=== PATIENT | female | born 1970 | race Caucasian/White ===

== ENCOUNTER 2016-03-05 12:18 | Outpatient (CLI) | payer OTHER | END 2016-03-05 12:19 | disposition home or self-care (01) | DX: M47.812 Spondylosis without myelopathy or radiculopathy, cervical region (principal); G89.29 Other chronic pain; R45.84 Anhedonia; R68.89 Other general symptoms and signs ==

== ENCOUNTER 2016-03-12 10:15 | Outpatient (CLI) | payer OTHER | END 2016-03-12 10:16 | disposition home or self-care (01) | DX: K52.9 Noninfective gastroenteritis and colitis, unspecified (principal) ==

== ENCOUNTER 2016-04-24 17:32 | Emergency (ER) | payer OTHER | END 2016-04-24 17:58 | disposition home or self-care (01) | DX: H66.001 Acute suppurative otitis media without spontaneous rupture of ear drum, right ear (principal); Z86.718 Personal history of other venous thrombosis and embolism; M79.7 Fibromyalgia; F17.200 Nicotine dependence, unspecified, uncomplicated ==

== ENCOUNTER 2016-07-29 12:11 | Emergency (ER) | payer OTHER ==
--- NOTE | 2016-07-29 12:43 | ED Physician Documentation ---
PD HPI HEENT - Stated complaint Stated Complaint: R EAR PX - Chief complaint Chief Complaint: Heent - History obtained from History obtained from: Patient - History of Present Illness Timing - onset: Other (She has frequent ear infections, cough and cold symptoms for the last week but increased right ear pain with popping and decreased hearing today.) Review of Systems Constitutional: denies: Fever, Chills Ears: reports: Loss of hearing, Ear pain. 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, Other HEENT: Tonsil/Adenoidectomy - Present Medications Home Medications: Ambulatory Orders Medication Instructions Recorded Confirmed Lisinopril 20 mg PO DAILY 09/21/13 03/18/15 Esomeprazole Magnesium [Nexium] 20 mg ORAL DAILY 02/18/15 03/18/15 Ferrous Gluconate 1 tab ORAL DAILY 02/18/15 03/18/15 DULoxetine [Cymbalta] 30 mg PO BID 12/18/15 12/18/15 HYDROcod/ACETAM 5/325 [[place] 5/325] 1 tab PO BID 12/18/15 12/18/15 Cephalexin [Keflex] 500 mg PO TID #21 capsule 04/24/16 Dexamethasone [Decadron] 4 mg PO DAILY #5 tablet 04/24/16 Acetaminophen with Codeine 1 - 2 tab PO Q4H PRN #10 tablet 07/29/16 [Acetaminophen-Cod #3 Tablet] Amoxicillin 500 mg PO TID #30 capsule 07/29/16 - Allergies Allergies/Adverse Reactions: Allergies Allergy/AdvReac Type Severity Reaction Status Date / Time nickel Allergy Edema Verified 07/29/16 12:25 - Social History Does the pt smoke?: Yes Smoking Status: Current every day smoker Does the pt drink ETOH?: No Does the pt have substance abuse?: No - Immunizations Immunizations are current?: Yes Immunizations: TDAP >10years/unknown - POLST Patient has POLST: No PD ED PE NORMAL - Vitals Vital signs reviewed: Yes - General General: Alert and oriented X 3, No acute distress - HEENT HEENT: PERRL, EOMI, Other (ROM, LTM normal) - Neck Neck: Supple, no meningeal sign, No bony TTP - Neuro Neuro: Alert and oriented X 3, Normal speech - Psych Psych: Normal mood, Normal affect Results - Vitals Vitals: Vital Signs - 24 hr 07/29/16 07/29/16 12:24 12:48 Temperature 36.7 C Heart Rate 84 80 Respiratory 14 16 Rate Blood Pressure 128/79 135/83 H O2 Saturation 100 99 Oxygen O2 Source Room air PD MEDICAL DECISION MAKING - ED course ED course: She requested pain medications, 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 A limited prescription was given. Departure - Departure Disposition: 01 Home, Self Care Clinical Impression: Otitis media Qualifiers: Otitis media type: suppurative Laterality: right Chronicity: acute Recurrence: recurrent Spontaneous tympanic membrane rupture: without spontaneous rupture Qualified Code(s): H66.004 - Acute suppurative otitis media without spontaneous rupture of ear drum, recurrent, right ear Condition: Good Record reviewed to determine appropriate education?: Yes Instructions: ED Otitis Media Acute Adult Prescriptions: Acetaminophen with Codeine [Acetaminophen-Cod #3 Tablet] 1 - 2 tab PO Q4H PRN # 10 tablet PRN Reason: Pain Amoxicillin 500 mg PO TID #30 capsule Comments: Followup with your physician in one week for recheck. Return if worse. Do not drink or drive while on narcotic pain medicine. Note that many narcotic pain relievers also contain tylenol/acetaminophen. Please ensure that your total dose of acetaminophen from all sources does not exceed 3 grams (3000mg) per day. You may constipated on this medication, take a stool softener such as "Colace" twice a day while you are on it. Also recommend a wdrx-zno-jwoqlru laxative such as senna or MiraLAX any day that you do not have a bowel movement. If you received narcotic pain medication in the emergency department, do not drive or operate machinery for the next 24 hours.
[2016-07-29 12:49] VITALS: BP 135/83
== END 2016-07-29 12:57 | disposition home or self-care (01) ==
LOC: ED 12:11
DX: H66.004 Acute suppurative otitis media without spontaneous rupture of ear drum, recurrent, right ear (principal); M79.7 Fibromyalgia; Z86.718 Personal history of other venous thrombosis and embolism; F17.200 Nicotine dependence, unspecified, uncomplicated
CPT/HCPCS: 99283

== ENCOUNTER 2016-09-17 15:43 | Emergency (ER) | payer OTHER ==
--- NOTE | 2016-09-17 19:05 | ED Physician Documentation ---
History of Present Illness - Stated complaint Stated Complaint: MIGRAINE/ R EAR HEARING ISSUE - Chief complaint Chief Complaint: Heent - Additonal information Additional information: hx from pt 46 f states hx R TM perf and recurrent infections since then form the last month or two she has had pain behind her ear and vertigo saw PMD told maybe she has mastoiditis, no imaging so far, rx augmentin X 10 d s relief, referral to ENT in progress pt to ER today because the vertigo was so bad she felt she might faint had a KELLY typical of her migraines yesterday but not today otherwise no numbness or weakness Review of Systems Constitutional: denies: Fever, Chills Ears: reports: Ear pain : reports: Control (tubal ligation) PD PAST MEDICAL HISTORY - Past Medical History Cardiovascular: Deep vein thrombosis Neuro: Headache/migraine Psych: Depression Musculoskeletal: Fibromyalgia, Chronic back pain Derm: Psoriasis - Past Surgical History Past Surgical History: Yes General: Other Ortho: Carpal Tunnel surgery, 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, Other HEENT: Tonsil/Adenoidectomy - Present Medications Home Medications: Ambulatory Orders Medication Instructions Recorded Confirmed Lisinopril 20 mg PO DAILY 09/21/13 09/17/16 Esomeprazole Magnesium [Nexium] 20 mg ORAL DAILY 02/18/15 09/17/16 Ferrous Gluconate 1 tab ORAL DAILY 02/18/15 09/17/16 DULoxetine [Cymbalta] 30 mg PO BID 12/18/15 09/17/16 HYDROcod/ACETAM 5/325 [[place] 5/325] 1 tab PO BID 12/18/15 09/17/16 Fluticasone [Flonase] 1 sprays CHITRA BID PRN #1 bottle 09/17/16 Meclizine [Antivert] 25 mg PO Q6H PRN #20 tablet 09/17/16 Zolpidem [Ambien] 5 mg PO HS 09/17/16 09/17/16 - Allergies Allergies/Adverse Reactions: Allergies Allergy/AdvReac Type Severity Reaction Status Date / Time nickel Allergy Edema Verified 09/17/16 15:52 - Social History Does the pt smoke?: Yes Smoking Status: Current every day smoker Does the pt drink ETOH?: No Does the pt have substance abuse?: No - Immunizations Immunizations are current?: Yes Immunizations: TDAP >10years/unknown - POLST Patient has POLST: No PD ED PE NORMAL - Vitals Vital signs reviewed: Yes - HEENT HEENT: Ears normal (TM dull and guzman, no perf or dc seen now), Other (TTP R mastoid but no redness swelling or warmth) - Cardiac Cardiac: RRR - Respiratory Respiratory: No respiratory distress, Clear bilaterally - Abdomen Abdomen: Soft, Non tender Results - Vitals Vitals: Vital Signs - 24 hr 09/17/16 09/17/16 15:50 18:21 Temperature 36.4 C L 36.5 C Heart Rate 99 87 Respiratory 16 18 Rate Blood Pressure 159/90 H 139/94 H O2 Saturation 100 100 Oxygen O2 Source Room air PD MEDICAL DECISION MAKING - ED course ED course: will try meclizine and rec flonase for pt 2/2 ear feels plugged, also printed epleys for pt to try at home Departure - Departure Disposition: 01 Home, Self Care Clinical Impression: Vertigo Condition: Good Instructions: ED Vertigo Unspecified Prescriptions: Meclizine [Antivert] 25 mg PO Q6H PRN #20 tablet PRN Reason: Dizziness Fluticasone [Flonase] 1 sprays CHITRA BID PRN #1 bottle PRN Reason: ear congestion Comments: Try the Earl maneuvers I printed instructions for Follow up with your PMD and ENT And have your PMD recheck your blood pressure - it was high today
[2016-09-17] MEDS: MECLIZINE 12.5 MG TABLET PO STA (19:14)
[2016-09-17] MEDS: OXYMETAZOLINE NASAL SPRAY NAS STA (19:16)
[2016-09-17] MEDS ORDERED: OXYMETAZOLINE NASAL SPRAY NAS ONE (19:17)
[2016-09-17] MEDS ORDERED: MECLIZINE 12.5 MG TABLET PO ONE (19:17)
[2016-09-17 19:56] VITALS: BP 147/91
== END 2016-09-17 19:55 | disposition home or self-care (01) ==
LOC: ED 15:43
DX: R42 Dizziness and giddiness (principal); Z86.718 Personal history of other venous thrombosis and embolism; M79.7 Fibromyalgia; F17.200 Nicotine dependence, unspecified, uncomplicated
CPT/HCPCS: 99283; A9270

== ENCOUNTER 2016-09-28 13:46 | Emergency (ER) | payer OTHER ==
[2016-09-28 14:02] VITALS: BP 152/97
[2016-09-28] MEDS ORDERED: SODIUM CHLORIDE 0.9% 1,000 ML IV ONE (14:45)
[2016-09-28 15:31] LABS: BASOPHILS # (AUTO) 0.1 10^3/uL (0.0-0.1); BASOPHILS % (AUTO) 1.3 %; EOSINOPHILS # (AUTO) 0.2 10^3/uL (0.0-0.7); EOSINOPHILS % (AUTO) 2.3 %; HCT - HEMATOCRIT 39.7 % (37.0-47.0); HGB - HEMOGLOBIN 13.5 g/dL (12.0-16.0); LYMPHOCYTES # (AUTO) 3.1 10^3/uL (1.5-3.5); LYMPHOCYTES % (AUTO) 32.5 %; MEAN CORPUSCULAR HEMOGLOBIN 29.8 pg (27.0-31.0); MEAN CORPUSCULAR HGB CONC 33.9 g/dL (32.0-36.0); MEAN CORPUSCULAR VOLUME 87.8 fL (81.0-99.0); MONOCYTES # (AUTO) 0.6 10^3/uL (0.0-1.0); MONOCYTES % (AUTO) 5.9 %; NEUTROPHILS # (AUTO) 5.6 10^3/uL (1.5-6.6); NUCLEATED RED BLOOD CELLS AUTO 0.1 /100WBC; RED BLOOD COUNT 4.52 10^6/uL (4.20-5.40); RED CELL DISTRIBUTION WIDTH 14.6 % (12.0-15.0); UNCORRECTED WHITE BLOOD COUNT 9.6 x10^3/uL; WHITE BLOOD COUNT 9.6 x10^3/uL (4.8-10.8)
[2016-09-28 15:45] LABS: ALBUMIN/GLOBULIN RATIO 1.3 (1.0-2.2); BILIRUBIN,TOTAL 0.4 mg/dL (0.2-1.0); CALCIUM 9.1 mg/dL (8.5-10.3); CREATININE 0.7 mg/dL (0.4-1.0); POTASSIUM 3.9 mmol/L (3.5-5.0); TOTAL PROTEIN 7.5 g/dL (6.7-8.2)
--- NOTE | 2016-09-28 15:56 | CT Preliminary Report ---
Exam: CT Facial Bones W/O IMPRESSION: 1. Near complete opacification of the right mastoid air cells as well as woby-pa-ybiqvxco fluid withi n the right middle ear. In the correct clinical setting this can be seen in otomastoiditis. 2. Moderate left mastoid fluid which can be seen in mastoiditis in the correct clinical setting. [facility] SITE ID: [id number]
--- NOTE | 2016-09-28 15:59 | CT Report ---
EXAM: CT MAXILLOFACIAL WITHOUT CONTRAST EXAM DATE: 09/28/2016 03:05 PM. CLINICAL HISTORY: Right mastoid tenderness. COMPARISONS: None. TECHNIQUE: Thin-section axial images were acquired of the face without contrast. Post-processing: Cor onal and sagittal reformats. Other: None. In accordance with CT protocol optimization, one or more of the following dose reduction techniques w ere utilized for this exam: automated exposure control, adjustment of mA and/or KV based on patient s ize, or use of iterative reconstructive technique. FINDINGS: Bones: No fracture or bone lesion. Temporomandibular Joints: The temporomandibular joints are symmetric and normally located. Sinuses: Mild mucosal thickening within the paranasal sinuses. Leftward curvature of the nasal septum . Moderate left mastoid fluid without evidence of erosion. Near-complete opacification of the right mastoid air cells without discrete erosion as well as mild t o moderate right middle ear fluid. Other: None. IMPRESSION: 1. Near complete opacification of the right mastoid air cells as well as xtuh-vf-vqbgpmft fluid withi n the right middle ear. In the correct clinical setting this can be seen in otomastoiditis. 2. Moderate left mastoid fluid which can be seen in mastoiditis in the correct clinical setting. [facility] Referring Provider Line: [phone] SITE ID: [id number]
[2016-09-28] MEDS ORDERED: SODIUM CHLORIDE FLUSH 0.9% 10 ML SYRINGE IVP ONE (16:06)
--- NOTE | 2016-09-28 16:48 | ED Physician Documentation ---
History of Present Illness - Stated complaint Stated Complaint: DIZZY/LETHARGIC - Chief complaint Chief Complaint: General - History obtained from History obtained from: Patient, Family - History of Present Illness Timing: Chronic (1 year) Pain level max: 6 Pain level now: 6 Improved by: augmentin Worsened by: moving - Additonal information Additional information: Patient is a 46-year-old female who presents to the emergency department with approximately a year to year and a half worth of intermittent vertigo, right ear pain. Most recently seen here for same and placed on antibiotics. She was then changed to Augmentin by her doctor which seemed to help her symptoms, has now stopped the antibiotics and is concerned about mastoiditis. No fevers. She has had vertigo from time to time as well as right-sided head pain. She has a referral to ENT, but has not made an appointment yet Patient states that meclizine helps her vertigo, but does not want to take this as it just makes her sleep. 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, Other HEENT: Tonsil/Adenoidectomy - Present Medications Home Medications: Ambulatory Orders Medication Instructions Recorded Confirmed Lisinopril 20 mg PO DAILY 09/21/13 09/17/16 Esomeprazole Magnesium [Nexium] 20 mg ORAL DAILY 02/18/15 09/17/16 Ferrous Gluconate 1 tab ORAL DAILY 02/18/15 09/17/16 DULoxetine [Cymbalta] 30 mg PO BID 12/18/15 09/17/16 HYDROcod/ACETAM 5/325 [[place] 5/325] 1 tab PO BID 12/18/15 09/17/16 Fluticasone [Flonase] 1 sprays CHITRA BID PRN #1 bottle 08/08/17 Meclizine [Antivert] 25 mg PO Q6H PRN #20 tablet 09/17/16 Zolpidem [Ambien] 5 mg PO HS 09/17/16 09/17/16 Amox/Clav 875/125 [Augmentin] 1 each PO Q12H #20 tablet 09/28/16 Oxycodone HCl/Acetaminophen 1 - 2 each PO Q6H PRN #7 tablet 09/28/16 [Percocet 5-325 mg Tablet] - Allergies Allergies/Adverse Reactions: Allergies Allergy/AdvReac Type Severity Reaction Status Date / Time nickel Allergy Edema Verified 09/17/16 15:52 - Social History Does the pt smoke?: Yes Smoking Status: Current every day smoker Does the pt drink ETOH?: No Does the pt have substance abuse?: No - Immunizations Immunizations are current?: Yes Immunizations: TDAP >10years/unknown - POLST Patient has POLST: No PD ED PE NORMAL - Vitals Vital signs reviewed: Yes - General General: Alert and oriented X 3, No acute distress - HEENT HEENT: PERRL, Moist mucous membranes, Pharynx benign, Other (Right tympanic membrane is perforated, there is no drainage. She does have some tenderness over the right mastoid area, no swelling, no erythema, no downward deflexion of the pinna.) - Neck Neck: Supple, no meningeal sign - Cardiac Cardiac: RRR - Respiratory Respiratory: No respiratory distress, Clear bilaterally - Abdomen Abdomen: Soft, Non tender - Derm Derm: Warm and dry - Neuro Neuro: Alert and oriented X 3 - Psych Psych: Normal mood, Normal affect Results - Vitals Vitals: Vital Signs - 24 hr 09/28/16 13:59 Temperature 36.8 C Heart Rate 90 Respiratory 14 Rate Blood Pressure 152/97 H O2 Saturation 100 Oxygen O2 Source Room air - Labs Labs: Laboratory Tests 09/28/16 09/28/16 14:45 14:45 WBC 9.6 RBC 4.52 Hgb 13.5 Hct 39.7 MCV 87.8 MCH 29.8 MCHC 33.9 RDW 14.6 Plt Count 265 MPV 8.0 Neut # 5.6 Lymph # 3.1 [place] # 0.6 Eos # 0.2 Baso # 0.1 Absolute Nucleated RBC 0.01 Nucleated RBCs 0.1 Sodium 139 Potassium 3.9 Chloride 106 Carbon Dioxide 23 Anion Gap 10.0 BUN 13 Creatinine 0.7 Estimated GFR (MDRD) 90 Glucose 117 H Calcium 9.1 Total Bilirubin 0.4 AST 15 ALT 15 Alkaline Phosphatase 79 Total Protein 7.5 Albumin 4.2 Globulin 3.3 Albumin/Globulin Ratio 1.3 Lipase 33 - Rads (name of study) CT mastoids Radiology: Prelim report reviewed, EMP read contemporaneously, See rad report ( . Near complete opacification of the right mastoid air cells as well as mild-to- moderate fluid within the right middle ear. In the correct clinical setting this can be seen in otomastoiditis. Moderate left mastoid fluid which can be seen in mastoiditis in the correct clinical setting.) PD MEDICAL DECISION MAKING - ED course Complexity details: reviewed results, re-evaluated patient, considered differential, d/w patient, d/w family ED course: Patient is a 46-year-old female who presents to the emergency department what appears to be a chronic perforation of the right eardrum leading to chronic otitis media. She does have fluid in the bilateral air cells of the mastoids, but does not have clinical symptoms of mastoiditis other than discomfort. She is very well-appearing, nontoxic. Afebrile. Normal white blood cell count. We will place her on Augmentin and have her follow-up closely with ENT. She feels better after IV fluids and is tolerating p.o. without difficulty here. Will prescribe a small amount of pain medication for home as well. Patient will return if she worsens. Patient and family counseled regarding signs and symptoms for which I believe and urgent re-evaluation would be necessary. Patient with good understanding of and agreement to plan and is comfortable going home at this time This document was made in part using voice recognition software. While efforts are made to proofread this document, sound alike and grammatical errors may occur. More likely that the fluid in the mastoid cells represents effusion rather than true mastoiditis at this time. Departure - Departure Disposition: 01 Home, Self Care Clinical Impression: Vertigo Chronic otitis media Qualifiers: Otitis media type: suppurative Laterality: right Suppurative otitis media location: unspecified location Qualified Code(s): H66.3X1 - Other chronic suppurative otitis media, right ear Condition: Good Instructions: ED Vertigo Unspecified, ED Otitis Media Acute Adult Follow-Up: Yonathan Valderrama MD [Primary Care Provider] - Within 1 week [facility] [Provider Group] [facility] [Provider Group] Prescriptions: Amox/Clav 875/125 [Augmentin] 1 each PO Q12H #20 tablet Oxycodone HCl/Acetaminophen [Percocet 5-325 mg Tablet] 1 - 2 each PO Q6H PRN #7 tablet PRN Reason: pain Comments: It is very important that you call ENT and follow up closely with with them for further evaluation. Return if you worsen. Discharge Date/Time: 09/28/16 17:30
== END 2016-09-28 17:30 | disposition home or self-care (01) ==
LOC: ED 13:46
DX: R42 Dizziness and giddiness (principal); H66.3X1 Other chronic suppurative otitis media, right ear; M79.7 Fibromyalgia; Z86.718 Personal history of other venous thrombosis and embolism; F17.200 Nicotine dependence, unspecified, uncomplicated
CPT/HCPCS: 36415; 70486; 80053; 83690; 85025; 96360; 99283; 99284

== ENCOUNTER 2016-10-19 18:54 | Emergency (ER) | payer OTHER ==
--- NOTE | 2016-10-19 19:16 | ED Physician Documentation ---
PD HPI MHE - Stated complaint Stated Complaint: SI - Chief complaint Chief Complaint: MHE - History obtained from History obtained from: Patient, Police - History of Present Illness Primary symptom: Other (46-year-old woman presents by private vehicle for suicidal ideation of several days duration. She initially denies any specific plan to me, however it is related from [facility] deputy that she has been asking her for her gun. She does have a history of suicide attempt at age 15 but has never been hospitalized for psychiatric issues. She denies drug or alcohol use but has missed a few Doses of her Cymbalta because of a pharmacy mixup.) Review of Systems Ten Systems: 10 systems reviewed and negative Constitutional: denies: Fever, Chills Nose: denies: Rhinorrhea / runny nose, Congestion Cardiac: reports: Reviewed and negative Respiratory: reports: Reviewed and negative GI: reports: Reviewed and negative PD PAST MEDICAL HISTORY - Past Medical History Cardiovascular: Deep vein thrombosis Neuro: Headache/migraine Psych: Depression Musculoskeletal: Fibromyalgia, Chronic back pain Derm: Psoriasis - Past Surgical History Past Surgical History: Yes General: Other Ortho: Carpal Tunnel surgery, 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, Other HEENT: Tonsil/Adenoidectomy - Present Medications Home Medications: Ambulatory Orders Medication Instructions Recorded Confirmed Lisinopril 20 mg PO DAILY 09/21/13 09/17/16 Esomeprazole Magnesium [Nexium] 20 mg ORAL DAILY 02/18/15 09/17/16 Ferrous Gluconate 1 tab ORAL DAILY 02/18/15 09/17/16 DULoxetine [Cymbalta] 30 mg PO BID 12/18/15 09/17/16 HYDROcod/ACETAM 5/325 [[place] 5/325] 1 tab PO BID 12/18/15 09/17/16 Fluticasone [Flonase] 1 sprays CHITRA BID PRN #1 bottle 09/17/16 Meclizine [Antivert] 25 mg PO Q6H PRN #20 tablet 09/17/16 Zolpidem [Ambien] 5 mg PO HS 09/17/16 09/17/16 Amox/Clav 875/125 [Augmentin] 1 each PO Q12H #20 tablet 09/28/16 Oxycodone HCl/Acetaminophen 1 - 2 each PO Q6H PRN #7 tablet 09/28/16 [Percocet 5-325 mg Tablet] - Allergies Allergies/Adverse Reactions: Allergies Allergy/AdvReac Type Severity Reaction Status Date / Time nickel Allergy Edema Verified 10/19/16 19:10 - Social History Does the pt smoke?: Yes Smoking Status: Current every day smoker Does the pt drink ETOH?: No Does the pt have substance abuse?: No - Family History Family history: reports: Non contributory - Immunizations Immunizations are current?: Yes Immunizations: TDAP >10years/unknown - POLST Patient has POLST: No PD ED PE NORMAL - Vitals Vital signs reviewed: Yes - General General: Alert and oriented X 3, No acute distress - HEENT HEENT: PERRL, EOMI - Neck Neck: Supple, no meningeal sign, No bony TTP - Cardiac Cardiac: RRR, No murmur - Respiratory Respiratory: No respiratory distress, Clear bilaterally - Abdomen Abdomen: Normal bowel sounds, Soft, Non tender - Back Back: No CVA TTP, No spinal TTP - Derm Derm: Normal color, Warm and dry - Extremities Extremities: No edema, No calf tenderness / cord - Neuro Neuro: Alert and oriented X 3, No motor deficit, No sensory deficit, Normal speech - Psych Psych: Normal mood, Normal affect Results - Vitals Vitals: Vital Signs - 24 hr 10/19/16 10/20/16 19:04 01:08 Temperature 36.5 C Heart Rate 98 68 Respiratory 14 16 Rate Blood Pressure 172/105 H 133/77 H O2 Saturation 98 96 Oxygen O2 Source Room air - Labs Labs: Laboratory Tests 10/19/16 10/19/16 10/19/16 19:24 19:24 20:05 WBC 10.2 RBC 4.64 Hgb 13.7 Hct 40.4 MCV 87.1 MCH 29.4 MCHC 33.8 RDW 14.6 Plt Count 286 MPV 7.7 L Neut # 5.9 Lymph # 3.0 [place] # 1.0 Eos # 0.2 Baso # 0.1 Absolute Nucleated RBC 0.00 Nucleated RBCs 0.0 Sodium 138 Potassium 3.9 Chloride 108 Carbon Dioxide 21 Anion Gap 9.0 BUN 14 Creatinine 0.6 Estimated GFR (MDRD) 108 Glucose 89 Calcium 9.4 Total Bilirubin 0.3 AST 22 ALT 18 Alkaline Phosphatase 72 Total Protein 7.8 Albumin 4.3 Globulin 3.5 Albumin/Globulin Ratio 1.2 Lipase 22 Urine Color Urine Clarity Urine pH Ur Specific [place] Urine Protein Urine Glucose (UA) Urine Ketones Urine Occult Blood Urine Nitrite Urine Bilirubin Urine Urobilinogen Ur Leukocyte Esterase Ur Microscopic Review Urine Culture Comments Urine HCG, Qual Urine Opiates Screen NEGATIVE Ur Oxycodone Screen NEGATIVE Urine Methadone Screen NEGATIVE Ur Propoxyphene Screen NEGATIVE Ur Barbiturates Screen NEGATIVE Ur Tricyclics Screen NEGATIVE Ur Phencyclidine Scrn NEGATIVE Ur Amphetamine Screen NEGATIVE U Methamphetamines Scrn NEGATIVE U Benzodiazepines Scrn POSITIVE H Urine Cocaine Screen NEGATIVE U Cannabinoids Screen NEGATIVE Ethyl Alcohol 5.7 10/19/16 20:05 WBC RBC Hgb Hct MCV MCH MCHC RDW Plt Count MPV Neut # Lymph # Angelina # Eos # Baso # Absolute Nucleated RBC Nucleated RBCs Sodium Potassium Chloride Carbon Dioxide Anion Gap BUN Creatinine Estimated GFR (MDRD) Glucose Calcium Total Bilirubin AST ALT Alkaline Phosphatase Total Protein Albumin Globulin Albumin/Globulin Ratio Lipase Urine Color YELLOW Urine Clarity CLEAR Urine pH 6.0 Ur Specific [place] >=1.030 H Urine Protein NEGATIVE Urine Glucose (UA) NEGATIVE Urine Ketones NEGATIVE Urine Occult Blood NEGATIVE Urine Nitrite NEGATIVE Urine Bilirubin NEGATIVE Urine Urobilinogen 0.2 (NORMAL) Ur Leukocyte Esterase NEGATIVE Ur Microscopic Review NOT INDICATED Urine Culture Comments NOT INDICATED Urine HCG, Qual NEGATIVE Urine Opiates Screen Ur Oxycodone Screen Urine Methadone Screen Ur Propoxyphene Screen Ur Barbiturates Screen Ur Tricyclics Screen Ur Phencyclidine Scrn Ur Amphetamine Screen U Methamphetamines Scrn U Benzodiazepines Scrn Urine Cocaine Screen U Cannabinoids Screen Ethyl Alcohol PD MEDICAL DECISION MAKING - ED course ED course: 46yo woman with Si and plan with access to gun. Seems at least moderate risk for suicide. RN called P who was dispatched to see patient. Care to Dr Montes to followup on P eval at shift change. Departure - Departure Disposition: 01 Home, Self Care Clinical Impression: Suicidal ideation Depression Qualifiers: Depression Type: major depressive disorder Major depression recurrence: recurrent Active/Remission status: currently active Major depression episode severity: severe Psychotic features: without psychotic features Qualified Code(s ): F33.2 - Major depressive disorder, recurrent severe without psychotic features Condition: Good Instructions: ED Depression Follow-Up: Yonathan Valderrama MD [Primary Care Provider] - Comments: Your blood pressure was elevated today, please recheck with your MD in 1 week or less. Discharge Date/Time: 10/20/16 01:13
[2016-10-19 19:28] LABS: BASOPHILS # (AUTO) 0.1 10^3/uL (0.0-0.1); BASOPHILS % (AUTO) 1.2 %; EOSINOPHILS # (AUTO) 0.2 10^3/uL (0.0-0.7); EOSINOPHILS % (AUTO) 1.6 %; HCT - HEMATOCRIT 40.4 % (37.0-47.0); HGB - HEMOGLOBIN 13.7 g/dL (12.0-16.0); LYMPHOCYTES % (AUTO) 29.9 %; MEAN CORPUSCULAR HEMOGLOBIN 29.4 pg (27.0-31.0); MEAN CORPUSCULAR HGB CONC 33.8 g/dL (32.0-36.0); MEAN CORPUSCULAR VOLUME 87.1 fL (81.0-99.0); MEAN PLATELET VOLUME 7.7 fL (7.9-10.8); MONOCYTES % (AUTO) 9.7 %; NEUTROPHILS # (AUTO) 5.9 10^3/uL (1.5-6.6); NEUTROPHILS % (AUTO) 57.6 %; RED BLOOD COUNT 4.64 10^6/uL (4.20-5.40); RED CELL DISTRIBUTION WIDTH 14.6 % (12.0-15.0); UNCORRECTED WHITE BLOOD COUNT 10.2 x10^3/uL; WHITE BLOOD COUNT 10.2 x10^3/uL (4.8-10.8)
[2016-10-19 19:41] LABS: ALBUMIN/GLOBULIN RATIO 1.2 (1.0-2.2); BILIRUBIN,TOTAL 0.3 mg/dL (0.2-1.0); CALCIUM 9.4 mg/dL (8.5-10.3); CREATININE 0.6 mg/dL (0.4-1.0); POTASSIUM 3.9 mmol/L (3.5-5.0); TOTAL PROTEIN 7.8 g/dL (6.7-8.2)
[2016-10-19 20:15] LABS: BILIRUBIN,URINE NEGATIVE (NEGATIVE)
[2016-10-19 20:18] LABS: HCG UR QUAL NEGATIVE; UA CHARGE (STRIP ONLY) YES; UR CULTURE IF IND NOT INDICATED
[2016-10-20 01:08] VITALS: BP 133/77
== END 2016-10-20 01:13 | disposition home or self-care (01) ==
LOC: ED 18:54
DX: F33.2 Major depressive disorder, recurrent severe without psychotic features (principal); R45.851 Suicidal ideations; Z91.5 Personal history of self-harm; M79.7 Fibromyalgia; Z86.718 Personal history of other venous thrombosis and embolism; F17.200 Nicotine dependence, unspecified, uncomplicated
CPT/HCPCS: 36415; 80053; 80306; 80320; 81001; 81003; 81025; 83690; 85025; 87086; 99283; 99284

== ENCOUNTER 2017-08-07 09:28 | Emergency (ER) | payer OTHER ==
[2017-08-07 10:11] VITALS: BP 124/74
== END 2017-08-07 11:55 | disposition left against medical advice (07) ==
LOC: ED 09:28
DX: Z53.21 Procedure and treatment not carried out due to patient leaving prior to being seen by health care provider (principal)
CPT/HCPCS: 99281

== ENCOUNTER 2017-08-10 16:09 | Emergency (ER) | payer OTHER ==
[2017-08-10 16:29] VITALS: BP 117/67
[2017-08-10] MEDS ORDERED: OXYMETAZOLINE NASAL SPRAY NAS STA (16:37)
[2017-08-10] MEDS ORDERED: PSEUDOEPHEDRINE 30 MG TABLET PO STA (16:37)
[2017-08-10] MEDS ORDERED: MECLIZINE 12.5 MG TABLET PO STA (16:37)
--- NOTE | 2017-08-10 16:43 | ED Physician Documentation ---
History of Present Illness - Stated complaint Stated Complaint: RT EAR PX - Chief complaint Chief Complaint: Neuro - Additonal information Additional information: hx from pt 47 female saw PMD 48 hr ago for R ear pain dx suzan AOM rx augmentin still has ear pain, dec hearing vertigo no fever denies preg Review of Systems Constitutional: denies: Fever Ears: reports: Ear pain Nose: reports: Congestion GI: denies: Vomiting : denies: Now EGA Neurologic: reports: Generalized weakness, Other (dizzy) Endocrine: denies: Easy bruising / bleeding Immunocompromised: denies: Immunocompromised PD PAST MEDICAL HISTORY - Past Medical History Cardiovascular: Hypertension Psych: Depression Musculoskeletal: Fibromyalgia, Chronic back pain Derm: Psoriasis - Past Surgical History Past Surgical History: Yes General: Other Ortho: Carpal Tunnel surgery, Spine surgery /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: Tubal 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, Other HEENT: Tonsil/Adenoidectomy - Present Medications Home Medications: Ambulatory Orders Medication Instructions Recorded Confirmed Lisinopril 20 mg PO DAILY 09/21/13 08/07/17 Esomeprazole Magnesium [Nexium] 20 mg ORAL DAILY 02/18/15 08/07/17 DULoxetine [Cymbalta] 30 mg PO BID 12/18/15 08/07/17 HYDROcod/ACETAM 5/325 [[place] 5/325] 1 tab PO BID 12/18/15 08/07/17 Fluticasone [Flonase] 1 sprays CHITRA BID PRN #1 bottle 09/17/16 08/07/17 Meclizine [Antivert] 25 mg PO Q6H PRN #20 tablet 09/17/16 08/07/17 Zolpidem [Ambien] 5 mg PO HS 09/17/16 08/07/17 Carbamide Peroxide Otic Drop 5 drops OT BID #1 bottle 08/10/17 [Debrox Otic Drops] Meclizine [Antivert] 25 mg PO Q6H PRN #20 tablet 08/10/17 Oxymetazoline HCl [Afrin] 2 spray NS BID PRN #1 bottle 08/10/17 Pseudoephedrine [Sudafed] 30 mg PO Q6H PRN #20 tablet 08/10/17 - Allergies Allergies/Adverse Reactions: Allergies Allergy/AdvReac Type Severity Reaction Status Date / Time nickel Allergy Edema Verified 08/07/17 10:11 - Social History Does the pt smoke?: Yes Smoking Status: Current every day smoker Does the pt drink ETOH?: No Does the pt have substance abuse?: No - Immunizations Immunizations are current?: Yes Immunizations: TDAP >10years/unknown - POLST Patient has POLST: No PD ED PE NORMAL - Vitals Vital signs reviewed: Yes - HEENT HEENT: EOMI (nystagmus looking right), Pharynx benign. No: Ears normal (suzan cerumen), Moist mucous membranes (sticky - advised to drink more fluids) - Neck Neck: Supple, no meningeal sign - Cardiac Cardiac: RRR - Respiratory Respiratory: No respiratory distress, Clear bilaterally - Abdomen Abdomen: Soft, Non tender - Neuro Neuro: Alert and oriented X 3 Eye Opening: Spontaneous Motor: Obeys Commands Verbal: Oriented GCS Score: 15 Results - Vitals Vitals: Vital Signs - 24 hr 08/10/17 16:23 Temperature 36.3 C L Heart Rate 108 H Respiratory 16 Rate Blood Pressure 117/67 O2 Saturation 100 Oxygen O2 Source Room air PD MEDICAL DECISION MAKING - ED course ED course: HR noted pt has not had much PO fluids today and appears slightly dehydrated able to tolerate pO and promises to drink more fluids at home no fever - don't think pt is septic, feel safe to dc home - Sepsis Event Vital Signs: Vital Signs - 24 hr 08/10/17 16:23 Temperature 36.3 C L Heart Rate 108 H Respiratory 16 Rate Blood Pressure 117/67 O2 Saturation 100 Oxygen O2 Source Room air Departure - Departure Disposition: 01 Home, Self Care Clinical Impression: Vertigo Otitis media Qualifiers: Otitis media type: unspecified Chronicity: subacute Qualified Code(s): H66.90 - Otitis media, unspecified, unspecified ear Cerumen impaction Qualifiers: Laterality: bilateral Qualified Code(s): H61.23 - Impacted cerumen, bilateral Instructions: ED BPV Vertigo Follow-Up: Yonathan Valderrama MD [Primary Care Provider] - Prescriptions: Carbamide Peroxide Otic Drop [Debrox Otic Drops] 5 drops OT BID #1 bottle Meclizine [Antivert] 25 mg PO Q6H PRN #20 tablet PRN Reason: Dizziness Oxymetazoline HCl [Afrin] 2 spray NS BID PRN #1 bottle PRN Reason: nasal sinus ear congestion Pseudoephedrine [Sudafed] 30 mg PO Q6H PRN #20 tablet PRN Reason: congestion Comments: Continue the antibiotic Dr Valderrama prescribed But you also need to us afrin twice a day and take sudafed four times a day to open the Eustachian tubes and decompress the middle ear That will help the pain and also likely help the dizziness I also prescribed meclizine for the dizziness and debrox to dissolve the excessive wax in your ears so you can hear better And drink more fluids No driving while you are dizzy If you are very dizzy, recommend using a friends or relatives cane or walker for a few days until you feel steady on your feet Follow up Dr Valderrama as needed Return to the ER if worse I
== END 2017-08-10 17:03 | disposition home or self-care (01) ==
LOC: ED 16:09
DX: R42 Dizziness and giddiness (principal); H66.90 Otitis media, unspecified, unspecified ear; H61.23 Impacted cerumen, bilateral; I10 Essential (primary) hypertension; F17.200 Nicotine dependence, unspecified, uncomplicated
CPT/HCPCS: 99283; A9270

== ENCOUNTER 2018-09-28 08:00 | Outpatient (CLI) | payer OTHER ==
[2018-09-28 20:44] LABS: CANDIDA GROUP DNA POSITIVE (NEGATIVE); CANDIDA KRUSEI DNA NEGATIVE (NEGATIVE); TRICHOMONAS VAGINALIS DNA NEGATIVE (NEGATIVE)
[2018-09-28 22:05] LABS: TRICHOMONAS VAGINALIS DNA NEGATIVE (NEGATIVE)
== END 2018-09-28 08:01 | disposition home or self-care (01) ==
LOC: LAB.WCP 08:00
PROVIDERS: ATTEND Family Medicine
DX: R30.0 Dysuria (principal); Z11.3 Encounter for screening for infections with a predominantly sexual mode of transmission
CPT/HCPCS: 87086; 87491; 87591; 87661; 87801

== ENCOUNTER 2018-09-28 13:19 | Emergency (ER) | payer OTHER ==
--- NOTE | 2018-09-28 14:11 | ED Physician Documentation ---
PD HPI ABD PAIN - Stated complaint Stated Complaint: ABD PX - Chief complaint Chief Complaint: Abd Pain - History obtained from History obtained from: Patient - History of Present Illness Timing - onset: How many days ago (3) Timing - duration: Days Timing - details: Gradual onset, Still present Quality: Sharp, Pain Location: RLQ Radiation: Lower back Improved by: Laying still Worsened by: Eating, Moving, Breathing, Position, Palpation Associated symptoms: Nausea, Diarrhea, Dysuria, Loss of appetite. No: Vomiting Similar symptoms before: Has not had sx before Recently seen: Clinic - Additional information Additional information: 48 y/o female with a history of fibromyalgia has developed abdominal pain, urinary symptoms and these have progressed over the past 3 days. She has been seen by her primary and a pelvic exam and cultures have been done. She is referred here for CT ab/pel to rule out appendicitis. She has not had fever or vomiting but she has a decreased appetite. Review of Systems Constitutional: denies: Fever Eyes: denies: Decreased vision Ears: denies: Ear pain Nose: denies: Congestion Throat: denies: Sore throat Cardiac: denies: Chest pain / pressure Respiratory: denies: Dyspnea, Cough GI: reports: Abdominal Pain, Nausea, Diarrhea. 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 AND CONTROL ANALYST: None : None HEENT: None Psych: Depression, Bipolar disorder Musculoskeletal: Fibromyalgia, Chronic back pain Derm: Psoriasis - Past Surgical History Past Surgical History: Yes General: Other Ortho: Carpal Tunnel surgery, Spine surgery /COMPLIANCE AND CONTROL ANALYST: Tubal ligation, Other HEENT: Tonsil/Adenoidectomy - Present Medications Home Medications: Ambulatory Orders Medication Instructions Recorded Confirmed RX: Lisinopril 20 mg PO DAILY 09/21/13 08/07/17 Esomeprazole Magnesium [Nexium] 20 mg ORAL DAILY 02/18/15 08/07/17 DULoxetine [Cymbalta] 30 mg PO BID 12/18/15 08/07/17 RX: HYDROcod/ACETAM 5/325 [[place] 1 tab PO BID 12/18/15 08/07/17 5/325] Fluticasone [Flonase] 1 sprays CHITRA BID PRN #1 bottle 09/17/16 08/07/17 RX: Meclizine [Antivert] 25 mg PO Q6H PRN #20 tablet 09/17/16 08/07/17 Zolpidem [Ambien] 5 mg PO HS 09/17/16 08/07/17 Carbamide Peroxide Otic Drop 5 drops OT BID #1 bottle 08/10/17 [Debrox Otic Drops] Oxymetazoline HCl [Afrin] 2 spray NS BID PRN #1 bottle 08/10/17 Pseudoephedrine [Sudafed] 30 mg PO Q6H PRN #20 tablet 08/10/17 RX: Meclizine [Antivert] 25 mg PO Q6H PRN #20 tablet 08/10/17 Oxycodone HCl/Acetaminophen 1 - 2 each PO Q6H PRN #14 tablet 09/28/18 [Percocet 5-325 mg Tablet] - Allergies Allergies/Adverse Reactions: Allergies Allergy/AdvReac Type Severity Reaction Status Date / Time nickel Allergy Edema Verified 09/28/18 13:26 - Social History Does the pt smoke?: Yes Smoking Status: Current every day smoker Does the pt drink ETOH?: No Does the pt have substance abuse?: No - Immunizations Immunizations are current?: Yes Immunizations: TDAP >10years/unknown - POLST Patient has POLST: No PD ED PE NORMAL - Vitals Vital signs reviewed: Yes (tachy and hypertensive ) - General General: Alert and oriented X 3, Well developed/nourished, Other (appears to be in pain with tears in her eyes ) - HEENT HEENT: Atraumatic, PERRL, EOMI - Neck Neck: Supple, no meningeal sign, No bony TTP - Cardiac Cardiac: No murmur, Other (tachy to 110) - Respiratory Respiratory: No respiratory distress, Clear bilaterally - Abdomen Abdomen: Normal bowel sounds, Soft, Other (There is generalized tenderness to all quadrants that appears out of proportion to the exam being done. She has maximal tenderness to the right lower quadrant. ) - Back Back: No spinal TTP, Other (mild CVA tenderness) - Derm Derm: Normal color, Warm and dry, No rash - Extremities Extremities: No deformity, No edema - Neuro Neuro: Alert and oriented X 3, supervisory aide 2-12 intact, No motor deficit, No sensory deficit, Normal speech Eye Opening: Spontaneous Motor: Obeys Commands Verbal: Oriented GCS Score: 15 - Psych Psych: Normal affect, Other (mood is painful ) Results - Vitals Vitals: Vital Signs - 24 hr 09/28/18 09/28/18 09/28/18 13:23 15:40 17:25 Temperature 36.8 C 36.7 C Heart Rate 114 H 90 65 Respiratory 19 16 18 Rate Blood Pressure 141/94 H 137/82 H 133/76 H O2 Saturation 100 98 98 Oxygen O2 Source Room air - Labs Labs: Laboratory Tests 09/28/18 09/28/18 09/28/18 13:48 13:48 14:12 WBC 12.0 H RBC 3.98 L Hgb 12.0 Hct 35.9 L MCV 90.2 MCH 30.2 MCHC 33.4 RDW 15.0 Plt Count 336 MPV 10.0 Neut # (Auto) 8.5 H Lymph # (Auto) 2.5 Gray # (Auto) 0.8 Eos # (Auto) 0.1 Baso # (Auto) 0.1 Absolute Nucleated RBC 0.00 Nucleated RBC % 0.0 Sodium 140 Potassium 3.2 L Chloride 108 Carbon Dioxide 17 L Anion Gap 15.0 H BUN 12 Creatinine 0.8 Estimated GFR (MDRD) 77 L Glucose 107 H Calcium 9.5 Total Bilirubin 0.5 AST 11 ALT 10 Alkaline Phosphatase 63 Total Protein 7.4 Albumin 4.0 Globulin 3.4 Albumin/Globulin Ratio 1.2 Lipase 45 Urine Color YELLOW Urine Clarity CLEAR Urine pH 6.0 Ur Specific [place] <=1.005 Urine Protein NEGATIVE Urine Glucose (UA) NEGATIVE Urine Ketones NEGATIVE Urine Occult Blood NEGATIVE Urine Nitrite NEGATIVE Urine Bilirubin NEGATIVE Urine Urobilinogen 0.2 (NORMAL) Ur Leukocyte Esterase NEGATIVE Ur Microscopic Review NOT INDICATED Urine Culture Comments NOT INDICATED Urine HCG, Qual NEGATIVE - Rads (name of study) CT ab/pel w/o Radiology: Prelim report reviewed, EMP read indepedently, See rad report u/s pel Radiology: Prelim report reviewed (Impression: 1. No adnexal mass. No free fluid. Arterial and venous blood flow are present to the ovaries bilaterally.), EMP read indepedently, See rad report Procedures - Bedside sono Bedside sono by EMP: With use of bedside ultrasound there is no evidence of intraperitoneal fluid. PD MEDICAL DECISION MAKING - ED course Complexity details: reviewed results, re-evaluated patient, considered differential, d/w patient ED course: 48-year-old female with acute abdominal pain presents to the emergency department with what appears to be peritonitis and examination by CT scan and ultrasound are without evidence of abnormality. Patient has good relief of pain with use of intravenous morphine. She has been examined earlier in the day by Dr. Butts and a pelvic exam was done she had cultures done she was not treated. Here in the emergency department she is treated with 250 mg of Rocephin intravenously and 1 g of azithromycin. We will provide a short course of pain medication and expect pain to resolve. Departure - Departure Disposition: Home, Self Care Clinical Impression: Abdominal pain Qualifiers: Abdominal location: generalized Qualified Code(s): R10.84 - Generalized abdominal pain Condition: Stable Instructions: ED Abdominal Pain Unkn Cause Follow-Up: Yonathan Valderrama MD [Primary Care Provider] - Prescriptions: Oxycodone HCl/Acetaminophen [Percocet 5-325 mg Tablet] 1 - 2 each PO Q6H PRN #14 tablet PRN Reason: pain Discharge Date/Time: 09/28/18 18:22
[2018-09-28 14:22] LABS: BASOPHILS # (AUTO) 0.1 10^3/uL (0.0-0.1); BASOPHILS % (AUTO) 0.6 %; EOSINOPHILS # (AUTO) 0.1 10^3/uL (0.0-0.7); EOSINOPHILS % (AUTO) 0.5 %; LYMPHOCYTES # (AUTO) 2.5 10^3/uL (1.5-3.5); LYMPHOCYTES % (AUTO) 20.9 %; MEAN CORPUSCULAR HEMOGLOBIN 30.2 pg (27.0-31.0); MEAN CORPUSCULAR HGB CONC 33.4 g/dL (32.0-36.0); MEAN CORPUSCULAR VOLUME 90.2 fL (81.0-99.0); MONOCYTES # (AUTO) 0.8 10^3/uL (0.0-1.0); MONOCYTES % (AUTO) 6.3 %; NEUTROPHILS # (AUTO) 8.5 10^3/uL (1.5-6.6); NEUTROPHILS % (AUTO) 71.1 %; PLT - PLATELET COUNT 336 10^3/uL (130-450); RED BLOOD COUNT 3.98 10^6/uL (4.20-5.40)
[2018-09-28 14:27] LABS: ALBUMIN/GLOBULIN RATIO 1.2 (1.0-2.2); BILIRUBIN,TOTAL 0.5 mg/dL (0.2-1.0); CALCIUM 9.5 mg/dL (8.5-10.3); CREATININE 0.8 mg/dL (0.4-1.0); TOTAL PROTEIN 7.4 g/dL (6.7-8.2)
[2018-09-28 14:29] LABS: BILIRUBIN,URINE NEGATIVE (NEGATIVE); GLUCOSE, URINE (UA) NEGATIVE (NEGATIVE); KETONES,URINE (UA) NEGATIVE (NEGATIVE); LEUKOCYTE ESTERASE, URINE NEGATIVE (NEGATIVE); NITRITE,URINE NEGATIVE (NEGATIVE); OCCULT BLOOD,URINE NEGATIVE (NEGATIVE); PROTEIN,URINE NEGATIVE (NEGATIVE); UROBILINOGEN,URINE 0.2 (NORMAL) E.U./dL (NORMAL)
[2018-09-28 14:32] LABS: CLARITY,URINE CLEAR (CLEAR); HCG UR QUAL NEGATIVE
[2018-09-28] MEDS ORDERED: POTASSIUM CHLOR 10 MEQ/100 ML 10 MEQ/100 ML BAG IV ONE (14:56)
--- NOTE | 2018-09-28 15:14 | CT Report ---
Reason: RLQ pain Procedure Date: 09/28/2018 Accession Number: [id number] / [id number] Procedure: CT - Abdomen/Pelvis WO CPT Code: FULL RESULT: EXAM: CT ABDOMEN AND PELVIS (CT KUB) EXAM DATE: 09/28/2018 02:57 PM. CLINICAL HISTORY: RLQ pain. COMPARISONS: None. TECHNIQUE: Routine axial helical CT imaging was performed through the abdomen and pelvis without IV contrast. Reconstructions: Coronal and sagittal. In accordance with CT protocol optimization, one or more of the following dose reduction techniques were utilized for this exam: automated exposure control, adjustment of mA and/or KV based on patient size, or use of iterative reconstructive technique. FINDINGS: Evaluation of solid abdominal organs is limited without intravenous contrast. Lung Bases: Unremarkable. Right Kidney/Ureter: No stone, hydronephrosis, or hydroureter. No perinephric fat stranding. Left Kidney/Ureter: No stone, hydronephrosis, or hydroureter. No perinephric fat stranding. Other Solid Organs: There is a 2.6 cm right adrenal nodule with internal density of 7-9 HU, most in keeping with an adenoma. Noncontrast images of the solid organs are grossly unremarkable. Gallbladder/Bile Ducts: Unremarkable. Peritoneal Cavity: No free fluid, free air or tamar adenopathy. Bowel is grossly unremarkable. No evidence of acute appendicitis. Pelvic Organs: No bladder stone or wall thickening. The uterus and adnexa are unremarkable. Vasculature: There is mild to moderate aortic atherosclerosis without aneurysm. Other: There is moderate lower lumbar facet arthrosis. IMPRESSION: 1. Negative CT KUB. 2. A small right adrenal nodule has imaging characteristics most consistent with an adenoma. RADIA
[2018-09-28] MEDS ORDERED: ONDANSETRON 4 MG/2 ML VIAL IVP STA (15:20)
[2018-09-28] MEDS ORDERED: MORPHINE 10 MG/ML VIAL IVP STA (15:20)
--- NOTE | 2018-09-28 17:04 | Ultrasound Report ---
Reason: RLQ pain Procedure Date: 09/28/2018 Accession Number: [id number] / [id number] Procedure: US - Pelvic w/Transvag+Doppler Ltd CPT Code: FULL RESULT: EXAM: PELVIC ULTRASOUND WITH DOPPLERS CLINICAL HISTORY: RLQ pain. COMPARISON: None. TECHNIQUE: Realtime transabdominal imaging performed to identify the uterus and adnexa and as an overview of other pelvic structures, followed by transvaginal imaging for better assessment of the endometrium and adnexa, with static image documentation. Color flow imaging and Doppler spectral analysis was performed to evaluate blood flow to the ovaries given pelvic pain and clinical concern for ovarian torsion. FINDINGS: Uterus: 8.9 x 5.4 x 7.2 cm, volume 180 cc. Anteverted position. Normal overall size and echotexture. Masses: None. Endometrium: 13 mm. Normal. Cervix: Unremarkable. Right Ovary: Multiple follicles seen in right ovary, largest follicle measures 2.2 x 1.8 cm. Arterial and venous blood flow is normal. Left Ovary: Multiple follicles in left ovary, largest follicle is 2.1 x 2.1 x 1.4 cm. Arterial and venous blood flow is normal. Free Fluid: None. Other: None. IMPRESSION: 1. No adnexal mass. No free fluid. 2. Arterial and venous blood flow are present to the ovaries bilaterally. RADIA
[2018-09-28 17:26] VITALS: BP 133/76
[2018-09-28] MEDS ORDERED: cefTRIAXone 500 MG VIAL IVP STA (17:28)
[2018-09-28] MEDS ORDERED: AZITHROMYCIN 250 MG TABLET PO STA (17:28)
== END 2018-09-28 18:22 | disposition home or self-care (01) ==
LOC: ED 13:19
DX: R10.84 Generalized abdominal pain (principal); M54.5 Low back pain; R11.0 Nausea; R19.7 Diarrhea, unspecified; M79.7 Fibromyalgia; I10 Essential (primary) hypertension; F17.200 Nicotine dependence, unspecified, uncomplicated; R30.0 Dysuria; Z11.3 Encounter for screening for infections with a predominantly sexual mode of transmission
CPT/HCPCS: 36415; 74176; 76830; 76856; 80053; 81003; 81025; 83690; 85025; 87086; 87481; 87491; 87591; 87661; 87801; 93976; 96365; 96375; 99284; A9270; 81001

== ENCOUNTER 2019-01-28 08:00 | Outpatient (CLI) | payer OTHER ==
[2019-01-28 21:50] LABS: TRICHOMONAS VAGINALIS DNA NEGATIVE (NEGATIVE)
== END 2019-01-28 23:59 | disposition home or self-care (01) ==
LOC: LAB.R 08:00
PROVIDERS: ATTEND Family Medicine
DX: N89.8 Other specified noninflammatory disorders of vagina (principal); R30.0 Dysuria
CPT/HCPCS: 81001; 81003; 87086; 87491; 87591; 87661

== ENCOUNTER 2020-04-05 11:50 | Outpatient (CLI) | payer OTHER | END 2020-04-05 23:59 | disposition home or self-care (01) | LOC: COV 11:50 | PROVIDERS: ATTEND Family Medicine | DX: R05 Cough (principal); R06.02 Shortness of breath; M79.10 Myalgia, unspecified site; R53.83 Other fatigue; R68.83 Chills (without fever); R07.0 Pain in throat; R43.8 Other disturbances of smell and taste; R09.81 Nasal congestion; Z20.822 Contact with and (suspected) exposure to COVID-19 ==

== ENCOUNTER 2020-09-15 15:04 | Emergency (ER) | payer OTHER ==
[2020-09-15 15:18] VITALS: BP 130/55
--- NOTE | 2020-09-15 15:35 | ED Physician Documentation ---
History of Present Illness - Stated complaint Stated Complaint: RIGHT BREAST PX - Chief complaint Chief Complaint: General - Additonal information Additional information: 50-year-old female presents the emergency department For evaluation of acute right breast swelling erythema and induration. She does have a history of bilateral breast implants. She reports that she had a hypertrophic scar at the site of the implant and she felt it may have developed into a cyst so yesterday she tried to pop it and then noted that instead of popping out it popped inward. Today she has significant swelling erythema and induration with some pain. No fevers. Review of Systems Constitutional: denies: Fever, Chills Eyes: reports: Reviewed and negative Ears: reports: Reviewed and negative Nose: reports: Reviewed and negative Throat: reports: Reviewed and negative Cardiac: reports: Reviewed and negative Skin: reports: Other (Right breast swelling) Musculoskeletal: reports: Reviewed and negative PD PAST MEDICAL HISTORY - Past Medical History Cardiovascular: Hypertension Respiratory: None Neuro: None Endocrine/Autoimmune: None GI: None MEDICAL STAFF DIRECTOR: None : None HEENT: None Psych: Depression, Bipolar disorder Musculoskeletal: Fibromyalgia, Chronic back pain Derm: Psoriasis - Past Surgical History Past Surgical History: Yes General: Other Ortho: Carpal Tunnel surgery, Spine surgery /MEDICAL STAFF DIRECTOR: Tubal ligation, Other HEENT: Tonsil/Adenoidectomy - Present Medications Home Medications: Ambulatory Orders Medication Instructions Recorded Confirmed Lisinopril 20 mg PO DAILY 09/21/13 08/07/17 Esomeprazole Magnesium [Nexium] 20 mg ORAL DAILY 02/18/15 08/07/17 DULoxetine [Cymbalta] 30 mg PO BID 12/18/15 08/07/17 HYDROcod/ACETAM 5/325 [[place] 5/325] 1 tab PO BID 12/18/15 08/07/17 Fluticasone [Flonase] 1 sprays CHITRA BID PRN #1 bottle 09/17/16 08/07/17 Meclizine [Antivert] 25 mg PO Q6H PRN #20 tablet 09/17/16 08/07/17 Zolpidem [Ambien] 5 mg PO HS 09/17/16 08/07/17 Carbamide Peroxide Otic Drop 5 drops OT BID #1 bottle 08/10/17 [Debrox Otic Drops] Meclizine [Antivert] 25 mg PO Q6H PRN #20 tablet 08/10/17 Oxymetazoline HCl [Afrin] 2 spray NS BID PRN #1 bottle 08/10/17 Pseudoephedrine [Sudafed] 30 mg PO Q6H PRN #20 tablet 08/10/17 Oxycodone HCl/Acetaminophen 1 - 2 each PO Q6H PRN #14 tablet 09/28/18 [Percocet 5-325 mg Tablet] cephALEXin [Keflex] 500 mg PO Q6H #28 09/15/20 - Allergies Allergies/Adverse Reactions: Allergies Allergy/AdvReac Type Severity Reaction Status Date / Time nickel Allergy Edema Verified 09/15/20 15:16 - Social History Does the pt smoke?: Yes Smoking Status: Current every day smoker Does the pt drink ETOH?: No Does the pt have substance abuse?: No - Immunizations Immunizations are current?: Yes Immunizations: TDAP >10years/unknown - POLST Patient has POLST: No PD ED PE EXPANDED - General General: Alert, No acute distress - Derm Derm: Other (Right breast with a 5 x 7 Her area of erythema and induration on the lower portion of the breast. Limited ultrasound at the bedside did not reveal an obvious fluid collection. no drainage) Results - Vitals Vitals: Vital Signs - 24 hr 09/15/20 15:16 Temperature 37.0 C Heart Rate 86 Respiratory 18 Rate Blood Pressure 130/55 L O2 Saturation 100 Oxygen O2 Source Room air PD MEDICAL DECISION MAKING - ED course Complexity details: d/w patient ED course: 50-year-old female presents emergency department for evaluation of acute right breast swelling erythema and induration at the site where she attempted to pop the cyst that was on the scar tissue that had formed after her breast implant surgery nearly 8 years ago. Her breasts remain symmetrical in appearance, doubt rupture of the implant Limited bedside ultrasound did not reveal an obvious fluid collection. Patient will be started on Keflex with recommendation of warm compress. Given history of breast implants she is advised very close follow-up with her breast surgeon in [place]. Emergent worrisome return precautions were discussed. Departure - Departure Disposition: 01 Home, Self Care Clinical Impression: Acute mastitis of right breast Condition: Stable Record reviewed to determine appropriate education?: Yes Prescriptions: cephALEXin [Keflex] 500 mg PO Q6H #28 Comments: Payton I like you to fill the prescription for the cephalexin and begin taking 4 times daily as directed for the next week. I would also like you to place a warm compress of your right breast for 10 minutes 3 times a day. It is very important that you follow-up with your breast surgeon as soon as possible to ensure that the implant remained stable. If at any point you have concerns of increased redness swelling pain please return immediately to the emergency department for a second evaluation.
== END 2020-09-15 15:47 | disposition home or self-care (01) ==
LOC: ED 15:04
DX: N61.0 Mastitis without abscess (principal); Z98.82 Breast implant status; I10 Essential (primary) hypertension; F17.200 Nicotine dependence, unspecified, uncomplicated
CPT/HCPCS: 99282; 99283

== ENCOUNTER 2021-01-08 08:00 | Outpatient (CLI) | payer OTHER | END 2021-01-08 23:59 | LOC: LAB.N 08:00 | PROVIDERS: ATTEND Nurse Practitioner | DX: R07.0 Pain in throat (principal); Z20.822 Contact with and (suspected) exposure to COVID-19 ==

== ENCOUNTER 2021-01-08 17:30 | Outpatient (CLI) | payer OTHER | END 2021-01-08 23:59 | disposition home or self-care (01) | LOC: LAB 17:30 | PROVIDERS: ATTEND Nurse Practitioner | DX: R07.0 Pain in throat (principal) | CPT/HCPCS: 87070 ==

== ENCOUNTER 2021-02-19 08:00 | Outpatient (CLI) | payer OTHER | END 2021-02-19 23:59 | LOC: LAB.N 08:00 | PROVIDERS: ATTEND Family Medicine | DX: R05.9 Cough, unspecified (principal); Z20.822 Contact with and (suspected) exposure to COVID-19 | CPT/HCPCS: 87275; 87276 ==

== ENCOUNTER 2021-02-23 14:22 | Outpatient (CLI) | payer OTHER ==
[2021-02-23 15:05] LABS: BASOPHILS # (AUTO) 0.1 10^3/uL (0.0-0.1); BASOPHILS % (AUTO) 0.7 %; EOSINOPHILS # (AUTO) 0.1 10^3/uL (0.0-0.7); EOSINOPHILS % (AUTO) 1.5 %; HCT - HEMATOCRIT 38.3 % (37.0-47.0); HGB - HEMOGLOBIN 12.4 g/dL (12.0-16.0); LYMPHOCYTES # (AUTO) 2.3 10^3/uL (1.5-3.5); LYMPHOCYTES % (AUTO) 25.9 %; MEAN CORPUSCULAR HEMOGLOBIN 28.2 pg (27.0-31.0); MEAN CORPUSCULAR HGB CONC 32.4 g/dL (32.0-36.0); MEAN CORPUSCULAR VOLUME 87.2 fL (81.0-99.0); MEAN PLATELET VOLUME 9.8 fL (7.9-10.8); MONOCYTES # (AUTO) 0.7 10^3/uL (0.0-1.0); MONOCYTES % (AUTO) 7.8 %; NEUTROPHILS # (AUTO) 5.6 10^3/uL (1.5-6.6); NEUTROPHILS % (AUTO) 63.8 %; PLT - PLATELET COUNT 299 10^3/uL (130-450); RED BLOOD COUNT 4.39 10^6/uL (4.20-5.40); WHITE BLOOD COUNT 8.7 x10^3/uL (4.8-10.8)
[2021-02-23 15:19] LABS: % IRON SATURATION 10 % (20-50); ALBUMIN 4.3 g/dL (3.2-5.5); ALBUMIN/GLOBULIN RATIO 1.3 (1.0-2.2); ALKALINE PHOSPHATASE 64 IU/L (42-121); ALT ALANINE AMINOTRANSFERASE 24 IU/L (10-60); AST ASPARTATE AMINOTRANSFERASE 18 IU/L (10-42); BILIRUBIN,TOTAL 0.7 mg/dL (0.2-1.0); BUN - BLOOD UREA NITROGEN 17 mg/dL (6-20); CALCIUM 9.6 mg/dL (8.5-10.3); CARBON DIOXIDE - CO2 22 mmol/L (21-32); CHLORIDE 104 mmol/L (101-111); CHOL/HDL RATIO 10.2 (<4.4); CHOLESTEROL 335 mg/dL; CREATININE 0.9 mg/dL (0.4-1.0); GFR - MDRD 66 (>89); GLUCOSE 113 mg/dL (70-100); HDL CHOLESTEROL 33 mg/dL; IRON 43 ug/dL (28-170); LDL CHOLESTEROL,CALCULATED 265 mg/dL; POTASSIUM 3.6 mmol/L (3.5-5.0); SODIUM 136 mmol/L (135-145); TOTAL IRON BINDING CAPACITY 437 ug/dL (250-450); TOTAL PROTEIN 7.7 g/dL (6.7-8.2); TRANSFERRIN 312 mg/dL (192-382); TRIGLYCERIDES 185 mg/dL; VLDL CHOLESTEROL 37 mg/dL
[2021-02-23 17:13] LABS: FERRITIN 3.8 ng/mL (11.0-306.8)
== END 2021-02-23 14:23 | disposition home or self-care (01) ==
LOC: LAB 14:22
PROVIDERS: ATTEND Family Medicine
DX: I10 Essential (primary) hypertension (principal); D50.9 Iron deficiency anemia, unspecified
CPT/HCPCS: 36415; 80053; 80061; 82607; 82728; 83540; 83721; 84466; 85025

== ENCOUNTER 2021-10-22 18:35 | Outpatient (CLI) | payer OTHER ==
--- NOTE | 2021-10-23 12:41 | Ultrasound Report ---
PROCEDURE: Pelvic w/Transvaginal INDICATIONS: HEAVY MENSTRUATION TECHNIQUE: Real-time scanning was performed of the pelvic organs, with image documentation. Additional endovagi nal scanning was necessary due to incomplete visualization of the adnexal and endometrial structures by transabdominal scanning. COMPARISON: None. FINDINGS: Uterus: Uterus is anteverted and normal in size at 8.3 x 5.3 x 5.9 cm. The myometrium is heterogene ous. No focal intrauterine mass lesions seen. The endometrium measures 8 mm in combined thickness. Ovaries: The right ovary measures 5.3 x 1.6 x 2.5 cm, with a calculated ovarian volume of 12.8 cc. The left ovary measures 3.9 x 2.3 x 3.8 cm, with a calculated ovarian volume of 18.2 cc. The ovaries have a normal sonographic appearance. There is a dominant follicle seen on the right ovary. There i s a 2.7 x 2.3 x 2.1 cm complex cyst noted in the left ovary. No adnexal masses are seen. Other: No pathologic free abdominal or pelvic fluid. IMPRESSION: 1. Unremarkable sonographic evaluation of the uterus. 2. A 2.7 x 2.3 x 2.1 cm complex left ovarian cyst. Recommend follow-up pelvic ultrasound in 6-12 week s to document stability versus resolution. Otherwise, no acute sonographic abnormalities identified i n the bilateral ovaries. Reviewed by: Saeid Garcia MD on 10/23/2021 12:39 PM PDT Approved by: Saeid Garcia MD on 10/23/2021 12:39 PM PDT Station ID: [id number]
== END 2021-10-22 18:36 | disposition home or self-care (01) ==
LOC: DI 18:35
PROVIDERS: ATTEND Nurse Practitioner Family
DX: R53.83 Other fatigue (principal); N92.0 Excessive and frequent menstruation with regular cycle; D50.9 Iron deficiency anemia, unspecified; N83.292 Other ovarian cyst, left side

== ENCOUNTER 2021-11-01 10:06 | Outpatient (CLI) | payer OTHER ==
[2021-11-01 10:17] LABS: HCT - HEMATOCRIT 34.4 % (37.0-47.0); MEAN CORPUSCULAR HEMOGLOBIN 28.1 pg (27.0-31.0); MEAN PLATELET VOLUME 9.4 fL (7.9-10.8); RED BLOOD COUNT 3.91 10^6/uL (4.20-5.40); RED CELL DISTRIBUTION WIDTH 16.4 % (12.0-15.0); WHITE BLOOD COUNT 11.5 x10^3/uL (4.8-10.8)
[2021-11-01 10:53] LABS: % IRON SATURATION 16 % (20-50); IRON 61 ug/dL (28-170); TOTAL IRON BINDING CAPACITY 384 ug/dL (250-450); TRANSFERRIN 274 mg/dL (192-382)
== END 2021-11-01 10:07 | disposition home or self-care (01) ==
LOC: LAB 10:06
PROVIDERS: ATTEND Nurse Practitioner
DX: D50.9 Iron deficiency anemia, unspecified (principal)
CPT/HCPCS: 36415; 82728; 83540; 84466; 85027

== ENCOUNTER 2022-02-07 13:34 | Outpatient (CLI) | payer OTHER ==
[2022-02-07 13:48] LABS: BASOPHILS # (AUTO) 0.1 10^3/uL (0.0-0.1); BASOPHILS % (AUTO) 0.6 %; EOSINOPHILS # (AUTO) 0.2 10^3/uL (0.0-0.7); EOSINOPHILS % (AUTO) 1.5 %; HCT - HEMATOCRIT 42.5 % (37.0-47.0); HGB - HEMOGLOBIN 13.6 g/dL (12.0-16.0); LYMPHOCYTES # (AUTO) 2.2 10^3/uL (1.5-3.5); LYMPHOCYTES % (AUTO) 18.9 %; MEAN CORPUSCULAR HEMOGLOBIN 29.6 pg (27.0-31.0); MEAN CORPUSCULAR VOLUME 92.6 fL (81.0-99.0); MEAN PLATELET VOLUME 9.5 fL (7.9-10.8); MONOCYTES # (AUTO) 0.8 10^3/uL (0.0-1.0); MONOCYTES % (AUTO) 6.9 %; NEUTROPHILS # (AUTO) 8.5 10^3/uL (1.5-6.6); NEUTROPHILS % (AUTO) 71.8 %; PLT - PLATELET COUNT 308 10^3/uL (130-450); RED BLOOD COUNT 4.59 10^6/uL (4.20-5.40); RED CELL DISTRIBUTION WIDTH 14.6 % (12.0-15.0); WHITE BLOOD COUNT 11.8 x10^3/uL (4.8-10.8)
[2022-02-07 14:36] LABS: % IRON SATURATION 22 % (20-50); IRON 95 ug/dL (28-170); TOTAL IRON BINDING CAPACITY 433 ug/dL (250-450); TRANSFERRIN 309 mg/dL (192-382)
[2022-02-07 14:50] LABS: FOLATE 15.47 ng/mL (5.90 - >24.8)
== END 2022-02-07 13:35 | disposition home or self-care (01) ==
LOC: LAB 13:34
PROVIDERS: ATTEND Nurse Practitioner Family
DX: D50.9 Iron deficiency anemia, unspecified (principal); R53.83 Other fatigue; R53.81 Other malaise; K58.9 Irritable bowel syndrome, unspecified; N92.0 Excessive and frequent menstruation with regular cycle
CPT/HCPCS: 36415; 82607; 82728; 82746; 83516; 83540; 84466; 85025; 86364

== ENCOUNTER 2022-03-29 10:58 | Day surgery (SDC) | payer OTHER ==
[2022-03-29] MEDS ORDERED: LACTATED RINGERS 1,000 ML IV ONE (10:59)
[2022-03-29] MEDS ORDERED: PROPOFOL 500 MG/50 ML 500 MG/50 ML VIAL ONE (12:12)
--- NOTE | 2022-03-29 12:13 | ANESTHESIA ---
Pre-Anesthesia VS, & Labs - Diagnosis screening - Procedure colonoscopy Vital Signs: Temp Pulse Resp BP Pulse Ox O2 Flow Rate 36.2 C L 81 16 112/86 H 100 03/29/22 11:07 03/29/22 11:07 03/29/22 11:07 03/29/22 11:07 03/29/22 11:07 Height: 5 ft 9 in Weight (kg): 79 kg Body Mass Index: 25.7 BMI Classification: Overweight - NPO >8 hours - Is Patient ?: No Home Medications and Allergies Home Medications: Ambulatory Orders DULoxetine [Cymbalta] 30 mg PO DAILY 03/29/22 Topiramate 50 mg PO DAILY 03/29/22 Zolmitriptan [Zomig] 5 mg PO DAILY 03/29/22 Zolpidem Tartrate [Zolpidem Tartrate ER] 6.25 mg PO DAILY 03/29/22 Lisinopril 20 mg PO DAILY 09/21/13 DULoxetine [Cymbalta] 30 mg PO DAILY 03/29/22 Topiramate 50 mg PO DAILY 03/29/22 Zolmitriptan [Zomig] 5 mg PO DAILY 03/29/22 Zolpidem Tartrate [Zolpidem Tartrate ER] 6.25 mg PO DAILY 03/29/22 Allergies/Adverse Reactions: Allergies Allergy/AdvReac Type Severity Reaction Status Date / Time nickel Allergy Edema Verified 10/25/21 10:34 Anes History & Medical History - Anesthetic History Anesthesia Complications: reports: No previous complications - Medical History Cardiovascular: reports: Hypertension Pulmonary: reports: None Gastrointestinal: reports: GERD Urinary: reports: Incontinence, Other Neuro: reports: None Musculoskeletal: reports: Osteoarthritis, Fibromyalgia, Fatigue, Chronic back pain Endocrine/Autoimmune: reports: None Blood Disorders: reports: None Skin: Smoking Status: Current every day smoker - Surgical History General: reports: Other Eyes Ears Nose Throat (EENT): reports: Tonsil/Adenoidectomy Gynecologic: reports: Tubal ligation, Other Orthopedic: reports: Carpal Tunnel surgery, Spine surgery Exam General: Alert, Oriented x3 Dental: TMJ Mouth Opening: Greater than 4 Fingerbreadths Neck Mobility: Normal Mallampati classification: II Thyromental Distance: greater than 6 cm Respiratory: Lungs clear Cardiovascular: Regular rate, Normal S1, Normal S2 Plan Anesthesia Type: Total IV Consent for Procedure(s) Verified and Reviewed: Yes Code Status: Attempt Resuscitation ASA classification: 2-Mild systemic disease Is this case an emergency?: No
[2022-03-29] MEDS ORDERED: LACTATED RINGERS 700 ML IV ONE (14:05)
[2022-03-29 14:29] VITALS: BP 108/71
--- NOTE | 2022-03-29 14:42 | ANESTHESIA POST OP EVALUATION ---
Anesthesia Post Eval - Post Anesthesia Eval Vitals: Last Vital Signs Temp 36.3 C L 03/29/22 14:27 Pulse 58 L 03/29/22 14:27 Resp 16 03/29/22 14:27 BP 108/71 03/29/22 14:27 Pulse Ox 100 03/29/22 14:27 O2 Flow Rate CV Function Including HR & BP: Stable Pain Control: Satisfactory Nausea & Vomiting: Negative Mental Status: Baseline Respiratory Status: Airway Patent Hydration Status: Satisfactory Anesthesia Complications: None
== END 2022-03-29 10:59 | disposition home or self-care (01) ==
LOC: SDS 10:58
PROVIDERS: ATTEND Surgery
PROC: 0DBP8ZX Excision of Rectum, Via Natural or Artificial Opening Endoscopic, Diagnostic (ICD-10-PCS; 2022-03-29)
PROC: 0DBK8ZX Excision of Ascending Colon, Via Natural or Artificial Opening Endoscopic, Diagnostic (ICD-10-PCS; principal; 2022-03-29 12:15)
DX: Z12.11 Encounter for screening for malignant neoplasm of colon (principal); K62.1 Rectal polyp; F17.200 Nicotine dependence, unspecified, uncomplicated
CPT/HCPCS: 45380; J7120

== ENCOUNTER 2022-04-01 13:43 | Outpatient (CLI) | payer OTHER ==
--- NOTE | 2022-04-01 15:34 | Ultrasound Report ---
PROCEDURE: Pelvic w/Transvaginal INDICATIONS: LEFT OVARIAN CYST TECHNIQUE: Real-time scanning was performed of the pelvic organs, with image documentation. Additional endovagi nal scanning was necessary due to incomplete visualization of the adnexal and endometrial structures by transabdominal scanning. COMPARISON: Pelvic ultrasound 10/22/2021. FINDINGS: Uterus: Uterus is anteverted and normal in size at 8.5 x 4.4 x 6.0 cm. The myometrium is homogeneou s. The endometrium measures 8 mm in combined thickness. Ovaries: The right ovary measures 2.7 x 1.5 x 2.6 cm, with a calculated ovarian volume of 5 cc. A s imple appearing paraovarian cyst is present measuring up to 1.3 cm. Per SRU guidelines, imaging follo w-up is not necessary for this finding. The left ovary measures 3.1 x 1.7 x 2.8 cm, with a calculated ovarian volume of 8 cc. A 1.7 cm follic le is present. Previously demonstrated complex cyst has resolved. Less than 12 follicles can be seen in each ovary. Other: No pathologic free abdominal or pelvic fluid. IMPRESSION: 1. Previously demonstrated complex left ovarian cyst has resolved. 2. Unremarkable sonographic appearance of the uterus. Reviewed by: Aayush De Anda MD on 04/01/2022 3:33 PM PST Approved by: Aayush De Anda MD on 04/01/2022 3:33 PM PST Station ID: [id number]
== END 2022-04-01 13:44 | disposition home or self-care (01) ==
LOC: DI 13:43
PROVIDERS: ATTEND Nurse Practitioner Family
DX: Z09 Encounter for follow-up examination after completed treatment for conditions other than malignant neoplasm (principal); Z87.42 Personal history of other diseases of the female genital tract

== ENCOUNTER 2022-04-01 13:44 | Outpatient (CLI) | payer OTHER ==
--- NOTE | 2022-04-02 10:37 | Mammography Report ---
BILATERAL DIGITAL SCREENING MAMMOGRAM 3D/2D WITH AUGMENTATION: 04/01/2022 CLINICAL: Routine screening. Baseline exam. Sister with breast cancer. No prior exams were available for comparison. There are scattered areas of fibroglandular density in both breasts (category b / 25%-50% glandular t issue). There is a possible 0.6 cm oval equal density asymmetry in the right breast anterior depth inferior r egion seen on the mediolateral oblique view only. No other significant masses, calcifications, or other findings are seen in either breast. Bilateral breast implants are present. IMPRESSION: INCOMPLETE: NEEDS ADDITIONAL IMAGING EVALUATION The possible 0.6 cm oval equal density asymmetry in the right breast is indeterminate. Additional vi ews with possible ultrasound are recommended. Based on Tyrer-Cuzick model (a risk assessment model), the patient's lifetime risk is 23.2% and her 1 0 year risk is 6.1%. If a patient has an elevated risk, a more comprehensive evaluation should be con sidered and/or a referral to a genetic counselor. The [place] [employer], [place] [employer], and NCCN Guidelines advise the consideration of Breast MRI as an adjunct to screening mammog jann in patients whose "Lifetime risk to develop breast cancer" is 20% or higher. This exam was interpreted at Station ID: [id number]. NOTE: For mammograms, a report in lay terms will be sent to the patient. Approximately 15% of breast malignancies will not be visualized mammographically. In the management of a palpable breast mass, a negative mammogram must not discourage biopsy of a clinically suspicious lesion. Electronically Signed By: Saeid Garcia M.D. aty/:04/01/2022 15:37:23 ACR BI-RADS Category 0: Incomplete 3340F PARENCHYMAL PATTERN: (A) - The breast(s) demonstrate(s) scattered fibroglandular densities. BI-RADS CATEGORY: (0) - 0 Mammo and [place] [id number] Immediate follow-up LATERALITY: (R)
== END 2022-04-01 13:45 | disposition home or self-care (01) ==
LOC: DI 13:44
DX: Z12.31 Encounter for screening mammogram for malignant neoplasm of breast (principal); Z80.3 Family history of malignant neoplasm of breast; R92.8 Other abnormal and inconclusive findings on diagnostic imaging of breast

== ENCOUNTER 2022-04-29 10:20 | Outpatient (CLI) | payer OTHER ==
--- NOTE | 2022-04-30 13:14 | Mammography Report ---
UNILATERAL RIGHT DIGITAL DIAGNOSTIC MAMMOGRAM 3D/2D WITH SPOT COMPRESSION WITH AUGMENTATION: 3 CLINICAL: Patient returns today to evaluate an asymmetry in the right breast. Comparison is made to exam dated: 04/01/2022 mammogram - Located within [facility]. There are scattered areas of fibroglandular density in the right breast (category b / 25%-50% glandul ar tissue). The 0.6 cm oval equal density asymmetry in the right breast anterior depth inferior region seen on th e mediolateral oblique view only is not seen in additional views. No other significant masses or calcifications are seen in the breast. IMPRESSION: BENIGN The possible benign 0.6 cm oval equal density asymmetry in the right seen on the screening mammogram likely respresents superimposed fibroglandular tissue and is benign. There is no mammographic evidence of malignancy. A 1 year screening mammogram is recommended. Based on the Tyrer Cuzick model (a risk assessment model) the patients lifetime risk is 17.8% and he r 10 year risk is 4.5%. According to the ACR, ACS, and NCCN guidelines, an annual breast MRI exam inessa ng with mammogram is recommended if the patients lifetime risk is 20% or greater. This exam was interpreted at Station ID: [id number]. NOTE: For mammograms, a report in lay terms will be sent to the patient. Approximately 15% of breast malignancies will not be visualized mammographically. In the management of a palpable breast mass, a negative mammogram must not discourage biopsy of a clinically suspicious lesion. Electronically Signed By: Kika Correa M.D. lk/:04/29/2022 10:47:41 ACR BI-RADS Category 2: Benign Finding(s) 3342F PARENCHYMAL PATTERN: (A) - The breast(s) demonstrate(s) scattered fibroglandular densities. BI-RADS CATEGORY: (2) - 2 Mammogram [id number] 1 year screening LATERALITY: (B)
== END 2022-04-29 10:21 | disposition home or self-care (01) ==
LOC: DI 10:20
PROVIDERS: ATTEND Nurse Practitioner Family
DX: R92.8 Other abnormal and inconclusive findings on diagnostic imaging of breast (principal)

== ENCOUNTER 2022-07-29 15:00 | Outpatient (CLI) | payer OTHER ==
[2022-07-29 17:35] LABS: BASOPHILS # (AUTO) 0.1 10^3/uL (0.0-0.1); BASOPHILS % (AUTO) 0.9 %; EOSINOPHILS # (AUTO) 0.1 10^3/uL (0.0-0.7); EOSINOPHILS % (AUTO) 1.1 %; HCT - HEMATOCRIT 41.3 % (37.0-47.0); HGB - HEMOGLOBIN 13.5 g/dL (12.0-16.0); MEAN CORPUSCULAR HEMOGLOBIN 29.7 pg (27.0-31.0); MEAN CORPUSCULAR HGB CONC 32.7 g/dL (32.0-36.0); MEAN CORPUSCULAR VOLUME 90.8 fL (81.0-99.0); MEAN PLATELET VOLUME 10.9 fL (7.9-10.8); MONOCYTES # (AUTO) 0.5 10^3/uL (0.0-1.0); MONOCYTES % (AUTO) 4.2 %; NEUTROPHILS # (AUTO) 8.5 10^3/uL (1.5-6.6); NEUTROPHILS % (AUTO) 75.5 %; PLT - PLATELET COUNT 301 10^3/uL (130-450); RED BLOOD COUNT 4.55 10^6/uL (4.20-5.40); RED CELL DISTRIBUTION WIDTH 13.7 % (12.0-15.0); WHITE BLOOD COUNT 11.3 x10^3/uL (4.8-10.8)
[2022-07-29 18:02] LABS: THYROID STIMULATING HORMONE 0.42 uIU/mL (0.34-5.60)
[2022-07-29 18:07] LABS: FERRITIN 13.4 ng/mL (11.0-306.8)
[2022-07-29 18:18] LABS: ALBUMIN 3.9 g/dL (3.2-5.5); ALBUMIN/GLOBULIN RATIO 1.1 (1.0-2.2); BILIRUBIN,TOTAL 0.7 mg/dL (0.2-1.0); CALCIUM 8.9 mg/dL (8.5-10.3); CREATININE 0.9 mg/dL (0.4-1.0); POTASSIUM 3.9 mmol/L (3.5-5.0); TOTAL PROTEIN 7.3 g/dL (6.7-8.2)
== END 2022-07-29 15:01 | disposition home or self-care (01) ==
LOC: LAB.N 15:00
PROVIDERS: ATTEND Nurse Practitioner Family
DX: D50.9 Iron deficiency anemia, unspecified (principal); R53.83 Other fatigue; F41.9 Anxiety disorder, unspecified; F32.A Depression, unspecified
CPT/HCPCS: 36415; 80050; 82728; 83540; 84466

== ENCOUNTER 2023-05-22 14:36 | Emergency (ER) | payer OTHER ==
--- NOTE | 2023-05-22 15:37 | ED Physician Documentation ---
PD HPI HEADACHE - Stated complaint Stated Complaint: MIGRAINE, EAR PX, - Chief complaint Chief Complaint: Neuro - History obtained from History obtained from: Patient - Additional information Additional information: 5 DAYS OF KELLY C/W PRIOR MIGRAINES, GRADUAL ONSET. ASSOC WITH SINUS PAIN AND DRAINAGE AND B EAR PAIN. 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: None : Incontinence, Other HEENT: None Psych: Depression, Anxiety Musculoskeletal: Fibromyalgia, Chronic back pain Derm:  - Past Surgical History Past Surgical History: Yes General: Other Ortho: Carpal Tunnel surgery, Spine surgery /IT COMMUNICATIONS MANAGER: Tubal ligation, Other HEENT: Tonsil/Adenoidectomy - Present Medications Home Medications: Ambulatory Orders Medication Instructions Recorded Confirmed Lisinopril 20 mg PO DAILY 09/21/13 03/29/22 DULoxetine [Cymbalta] 30 mg PO DAILY 03/29/22 03/29/22 Topiramate 50 mg PO DAILY 03/29/22 03/29/22 ZOLMitriptan [Zomig] 5 mg PO DAILY 03/29/22 03/29/22 Zolpidem Tartrate [Zolpidem 6.25 mg PO DAILY 03/29/22 03/29/22 Tartrate ER] Amoxicillin 500 mg PO TID #30 cap 05/22/23 Guaifenesin/Pseudoephedrne HCl 1 each PO BID PRN #20 tab 05/22/23 [Mucinex D ER 600-60 mg Tablet] ZOLMitriptan [Zomig] 5 mg PO DAILY PRN #10 tablet 05/22/23 - Allergies Allergies/Adverse Reactions: Allergies Allergy/AdvReac Type Severity Reaction Status Date / Time nickel Allergy Edema Verified 05/22/23 14:45 - Social History Does the pt smoke?: Yes Smoking Status: Current every day smoker Does the pt drink ETOH?: No Does the pt have substance abuse?: No - Immunizations Immunizations are current?: Yes Immunizations: TDAP >10years/unknown - POLST Patient has POLST: No PD ED PE NORMAL - Vitals Vital signs reviewed: Yes - General General: Alert and oriented X 3, No acute distress - HEENT HEENT: PERRL, EOMI, Pharynx benign, Other (TMS NORMAL, V TENDER R MAX SINUS) - Neck Neck: Supple, no meningeal sign - Neuro Neuro: Alert and oriented X 3, field mechanic 2-12 intact Eye Opening: Spontaneous Motor: Obeys Commands Verbal: Oriented GCS Score: 15 - Psych Psych: Normal mood Results - Vitals Vitals: Vital Signs - 24 hr 05/22/23 05/22/23 14:45 15:51 Temperature 36.8 C Heart Rate 94 89 Respiratory 16 18 Rate Blood Pressure 148/99 H 139/81 H O2 Saturation 99 98 Oxygen O2 Source Room air PD Medical Decision Making - ED course ED course: She presents with headache in the setting of sinusitis. She does not appear ill and has no meningismus. She received subcutaneous Imitrex here and will start amoxicillin and refill her Zomig. Departure - Departure Disposition: 01 Home, Self Care Clinical Impression: Migraine, Sinusitis Condition: Good Record reviewed to determine appropriate education?: Yes Instructions: ED Headache Migraine, ED Sinusitis Abx Tx Prescriptions: Amoxicillin 500 mg PO TID #30 cap Guaifenesin/Pseudoephedrne HCl [Mucinex D ER 600-60 mg Tablet] 1 each PO BID PRN #20 tab PRN Reason: congestion ZOLMitriptan [Zomig] 5 mg PO DAILY PRN #10 tablet PRN Reason: Migraine Comments: [facility] WORSE FOLLOWUP WITH YOUR PCP IN 1 WEEK Forms: PCP List Discharge Date/Time: 05/22/23 15:52
[2023-05-22] MEDS: SUMAtriptan 6 MG/0.5 ML VIAL SUBQ STA (15:40)
[2023-05-22 15:57] VITALS: BP 139/81; O2SAT 98
== END 2023-05-22 15:52 | disposition home or self-care (01) ==
LOC: ED 14:36
DX: G43.909 Migraine, unspecified, not intractable, without status migrainosus (principal); J32.9 Chronic sinusitis, unspecified; I10 Essential (primary) hypertension; F17.200 Nicotine dependence, unspecified, uncomplicated; Z79.899 Other long term (current) drug therapy
CPT/HCPCS: 96372; 99283

== ENCOUNTER 2023-06-24 12:59 | Outpatient (CLI) | payer OTHER ==
--- NOTE | 2023-06-24 14:46 | MRI Report ---
PROCEDURE: Cervical Spine WO INDICATIONS: CERVICAL RADICULOPATHY TECHNIQUE: Noncontrast sagittal T1 spin echo and T2 fast spin echo, sagittal STIR, foraminal oblique sagittal T2 fast spin echo, and axial gradient echo or T2 fast spin echo through the cervical spine. COMPARISON: None. FINDINGS: Image quality: Excellent. Alignment and Curvature: There is loss of normal cervical lordosis. Bone Marrow: Marrow demonstrates normal overall signal. Anterior fusion hardware at C6-C7. Mild vikash ctive signal throughout the endplates of the cervical and upper thoracic spine. Spinal Cord: Visualized spinal cord has normal size and signal. No cerebellar tonsillar herniation. Paraspinous Soft Tissues: No paravertebral masses. Prevertebral soft tissues are normal in thicknes s. C2-C3: Mild disc desiccation and diffuse disc bulge. Mild left facet hypertrophy. No significant can al stenosis. Mild left foraminal stenosis. No right foraminal stenosis C3-C4: Mild disc desiccation and diffuse disc bulge. Mild facet and uncovertebral hypertrophy bilat erally. Mild canal stenosis. Moderate left and mild right foraminal stenosis C4-C5: Mild disc desiccation and diffuse disc bulge. Mild facet and uncovertebral hypertrophy. Mild canal stenosis. Moderate bilateral foraminal stenosis. C5-C6: Mild disc desiccation and diffuse disc bulge. Mild facet and uncovertebral hypertrophy bilate rally. Mild canal stenosis. Severe left and moderate right foraminal stenosis. Left C6 nerve root com pression C6-C7: Anterior fusion. Mild diffuse residual disc bulge/osteophyte. Mild facet and uncovertebral hy pertrophy. Mild canal stenosis. Mild bilateral foraminal stenosis. C7-T1: Mild disc desiccation and diffuse disc bulge. Mild facet and uncovertebral hypertrophy. Mild canal stenosis. Mild bilateral foraminal stenosis IMPRESSION: 1. Postsurgical sequelae. 2. Multilevel degenerative disc and facet disease as well as uncovertebral hypertrophy. 3. Mild multilevel canal stenoses. 4. Multilevel foraminal stenoses, worst at C5-C6 where there is associated foraminal nerve root compr ession. Recommend correlation with clinical symptoms to ascertain relevance of this finding. Reviewed by: Merissa Bennett MD on 06/24/2023 2:45 PM PDT Approved by: Merissa Bennett MD on 06/24/2023 2:45 PM PDT Station ID: [id number]
== END 2023-06-24 13:00 | disposition home or self-care (01) ==
LOC: DI 12:59
PROVIDERS: ATTEND Nurse Practitioner
DX: M50.31 Other cervical disc degeneration, high cervical region (principal); M48.02 Spinal stenosis, cervical region; Z98.1 Arthrodesis status; M47.22 Other spondylosis with radiculopathy, cervical region

== ENCOUNTER 2023-07-07 13:17 | Emergency (ER) | payer OTHER ==
--- NOTE | 2023-07-07 16:15 | ED Physician Documentation ---
PD HPI URI - Stated complaint Stated Complaint: FEVER,NECK/SHOULDER SPASMS - Chief complaint Chief Complaint: General - History obtained from History obtained from: Patient - History of Present Illness Timing - onset: How many days ago (2) Timing duration: Days (2) Timing details: Gradual onset, Still present Associated symptoms: Fever (subjective), Other (has pain right neck radiating down right arm to little finger/ring finger area without noted injury. Sensitive/painful along that line. Not hurting/tender in other area of arm/hand.). 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 : Incontinence, Other HEENT: None Psych: Depression, Anxiety Musculoskeletal: Fibromyalgia, Chronic back pain Derm:  - Past Surgical History Past Surgical History: Yes General: Other Ortho: Carpal Tunnel surgery, Spine surgery /ROUGH RIB GRADER: Tubal ligation, Other HEENT: Tonsil/Adenoidectomy - Present Medications Home Medications: Ambulatory Orders Medication Instructions Recorded Confirmed Lisinopril 20 mg PO DAILY 09/21/13 03/29/22 DULoxetine [Cymbalta] 30 mg PO DAILY 03/29/22 03/29/22 Topiramate 50 mg PO DAILY 03/29/22 03/29/22 ZOLMitriptan [Zomig] 5 mg PO DAILY 03/29/22 03/29/22 Zolpidem Tartrate [Zolpidem 6.25 mg PO DAILY 03/29/22 03/29/22 Tartrate ER] Amoxicillin 500 mg PO TID #30 cap 05/22/23 Guaifenesin/Pseudoephedrne HCl 1 each PO BID PRN #20 tab 05/22/23 [Mucinex D ER 600-60 mg Tablet] ZOLMitriptan [Zomig] 5 mg PO DAILY PRN #10 tablet 05/22/23 HYDROcod/ACETAM 5/325 [[place] 5/325] 1 ea PO Q6H PRN #18 tablet 07/07/23 Valacyclovir HCl [Valtrex] 1,000 mg PO TID #15 tablet 07/07/23 dexAMETHasone [Decadron] 4 mg PO DAILY #5 tablet 07/07/23 methocarbamoL [Robaxin] 500 mg PO Q6H PRN #30 tablet 07/07/23 - Allergies Allergies/Adverse Reactions: Allergies Allergy/AdvReac Type Severity Reaction Status Date / Time nickel Allergy Edema Verified 07/07/23 13:37 - Social History Does the pt smoke?: No Smoking Status: Never smoker Does the pt drink ETOH?: No Does the pt have substance abuse?: No - Immunizations Immunizations are current?: Yes Immunizations: TDAP >10years/unknown - POLST Patient has POLST: No PD ED PE NORMAL - Vitals Vital signs reviewed: Yes - General General: Alert and oriented X 3, No acute distress, Well developed/nourished - Neck Neck: Supple, no meningeal sign, No bony TTP, No adenopathy, Other (tender right side lower part of neck and along line of suprascapular, lateral upper arm, ulnar side forearm. No rash nor sores. ) Results - Vitals Vitals: Oxygen O2 Source Room air - Labs Labs: Laboratory Tests 07/07/23 15:50 Nasal Adenovirus (PCR) NOT DETECTED Nasal B. parapertussis DNA (PCR) NOT DETECTED Nasal Coronavir 229E PCR NOT DETECTED Nasal Coronavir HKU1 PCR NOT DETECTED Nasal Coronavir NL63 PCR NOT DETECTED Nasal Coronavir OC43 PCR NOT DETECTED Nasal Enterovir/Rhinovir PCR NOT DETECTED Nasal Influenza B PCR NOT DETECTED Nasal Influenza A PCR NOT DETECTED Nasal Parainfluen 1 PCR NOT DETECTED Nasal Parainfluen 2 PCR NOT DETECTED Nasal Parainfluen 3 PCR NOT DETECTED Nasal Parainfluen 4 PCR NOT DETECTED Nasal RSV (PCR) NOT DETECTED Nasal B.pertussis DNA PCR NOT DETECTED Nasal C.pneumoniae (PCR) NOT DETECTED Johnson Human Metapneumo PCR NOT DETECTED Nasal M.pneumoniae (PCR) NOT DETECTED Nasal SARS-CoV-2 (PCR) NOT DETECTED PD Medical Decision Making - ED course Complexity details: considered differential (neck to arm pain with subjective feeling of feverish/ill without URI symptoms, with tenderness along nerve root line (C5 level) seems likely c/w developing shingles. ), d/w patient Departure - Departure Disposition: 01 Home, Self Care Clinical Impression: Radiculitis, cervical Arm pain Qualifiers: Laterality: right Qualified Code(s): M79.601 - Pain in right arm Condition: Stable Record reviewed to determine appropriate education?: Yes Instructions: ED Cervical Radiculopathy Follow-Up: Yamilet Savage ARNP [Primary Care Provider] - Prescriptions: dexAMETHasone [Decadron] 4 mg PO DAILY #5 tablet HYDROcod/ACETAM 5/325 [[place] 5/325] 1 ea PO Q6H PRN #18 tablet PRN Reason: Pain methocarbamoL [Robaxin] 500 mg PO Q6H PRN #30 tablet PRN Reason: Spasms Valacyclovir HCl [Valtrex] 1,000 mg PO TID #15 tablet Comments: I printed out the copy of your neck MRI report. It did show some disc bulging in several layers or levels but most significantly at the C5-6 level. It states there is some foraminal encroachment (with the nerve root comes out) on both sides. This would correlate pattern mccarthy with where you are experiencing your pain on the right arm. However interestingly I would not expect tenderness of the skin along that layer or area. This brings to mind the idea of possible shingles or such given the pain as well as sensitivity and the nerve root pattern. As such we will treat not only the radiculitis/nerve root impingement with anti- inflammatory and muscle relaxant and pain medicine. I would also be inclined to add on MARGO [place] acyclovir for potential viral inflammation. I sent a prescription to preferred pharmacy. We sent you home with some pain pills tonight as the pharmacies will now be closed. Recheck if not improving well over the next several days. I am prescribing a short course of narcotic pain medication for you. These are potentially dangerous and addictive medications that should be used carefully. These medications may constipate you. Take an mabi-iwp-[id number] stool softener such as docusate twice daily with plenty of water while taking these medications. If you go 24 hours without a bowel movement, take [id number]-[id number] MiraLAX, per package instructions. Do not drink or drive while taking these medications. If you received narcotic or sedating medications while in the emergency department do not drive for 24 hours. Store this medication in a safe, secure place and out of reach of children. It is a violation of federal law to give or sell this medication to another person or to use in a manner other than prescribed. The ED will not refill narcotic prescriptions, including prescriptions lost or stolen. You can dispose of unwanted medications at the [facility]'s office or at several pharmacies such as [facility]. Forms: PCP List Discharge Date/Time: 07/07/23 18:05
[2023-07-07 16:57] LABS: B. PARAPERTUSSIS- RESP PCR PAN NOT DETECTED; B. PERTUSSIS- RESP PCR PANEL NOT DETECTED; C. PNEUMONIAE- RESP PCR PANEL NOT DETECTED; CORONAVIRUS 229E-RESP PCR NOT DETECTED; CORONAVIRUS HKU1-RESP PCR NOT DETECTED; CORONAVIRUS NL63-RESP PCR NOT DETECTED; CORONAVIRUS OC43-RESP PCR NOT DETECTED; HUMAN METAPNEUMOVIRUS NOT DETECTED; INFLUENZA A- RESP PCR PANEL NOT DETECTED; INFLUENZA B - RESP PCR PANEL NOT DETECTED; M. PNEUMONIAE- RESP PCR PANEL NOT DETECTED; PARAINFLUENZA VIRUS 1 NOT DETECTED; PARAINFLUENZA VIRUS 2 NOT DETECTED; PARAINFLUENZA VIRUS 3 NOT DETECTED; PARAINFLUENZA VIRUS 4 NOT DETECTED; RHINOVIRUS/ENTEROVIRUS NOT DETECTED; RSV- RESP PCR PANEL NOT DETECTED; SARS-CoV-2 -RESP PCR PANEL NOT DETECTED
[2023-07-07] MEDS: dexAMETHasone 4 MG TABLET PO STA (17:46)
[2023-07-07] MEDS: HYDROcod/ACETAM 5/325 MG TABLET PO STA (17:46)
[2023-07-07] MEDS: HYDROcod/ACET 5/325 Prepack 4 PO STA (17:46)
[2023-07-07] MEDS: valACYclovir 500 MG TABLET PO SCH (18:04)
[2023-07-07 18:11] VITALS: BP 133/83; O2SAT 99
== END 2023-07-07 18:05 | disposition home or self-care (01) ==
LOC: ED 13:17
DX: M54.12 Radiculopathy, cervical region (principal); M79.601 Pain in right arm; I10 Essential (primary) hypertension; Z79.899 Other long term (current) drug therapy
CPT/HCPCS: 87633; 99283; A9270; J8540

== ENCOUNTER 2023-08-11 11:51 | Emergency (ER) | payer OTHER ==
--- NOTE | 2023-08-11 12:46 | ED Physician Documentation ---
History of Present Illness - Stated complaint Stated Complaint: JAW PX, SOA, CHEST PX - Chief complaint Chief Complaint: General - History obtained from History obtained from: Patient - Additonal information Additional information: She has a history of a lot of neck issues. Is seeing a spine surgeon for same and had an MRI a little over a month ago of her neck demonstrating multilevel DDD and facet disease and multilevel foraminal stenoses. She been having a lot of ongoing neck pain both of her hands are numb. Over the last 3 days though she has noticed more jaw pain and some chest heaviness with shortness of breath. The symptoms worsen after eating but also with exertion. She denies pedal edema. No history of heart problems. She is not a smoker. 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 : Incontinence, Other HEENT: None Psych: Depression, Anxiety Musculoskeletal: Fibromyalgia, Chronic back pain, Other Derm:  - Past Surgical History Past Surgical History: Yes General: Other Ortho: Carpal Tunnel surgery, Spine surgery /NUTRITIONIST PUBLIC HEALTH: Tubal ligation, Other HEENT: Tonsil/Adenoidectomy - Present Medications Home Medications: Ambulatory Orders Medication Instructions Recorded Confirmed Lisinopril 20 mg PO DAILY 09/21/13 08/11/23 DULoxetine [Cymbalta] 30 mg PO DAILY 03/29/22 08/11/23 Topiramate 50 mg PO DAILY 03/29/22 08/11/23 ZOLMitriptan [Zomig] 5 mg PO DAILY 03/29/22 08/11/23 Zolpidem Tartrate [Zolpidem 6.25 mg PO DAILY 03/29/22 08/11/23 Tartrate ER] ZOLMitriptan [Zomig] 5 mg PO DAILY PRN #10 tablet 05/22/23 08/11/23 HYDROcod/ACETAM 5/325 [[place] 5/325] 1 ea PO Q6H PRN #18 tablet 07/07/23 08/11/23 Valacyclovir HCl [Valtrex] 1,000 mg PO TID #15 tablet 07/07/23 08/11/23 methocarbamoL [Robaxin] 500 mg PO Q6H PRN #30 tablet 07/07/23 08/11/23 Calcium Carbonate [Calcium] 1 tab PO DAILY 08/11/23 08/11/23 Cholecalciferol (Vitamin D3) 1 cap PO DAILY 08/11/23 08/11/23 [Vitamin D3] - Allergies Allergies/Adverse Reactions: Allergies Allergy/AdvReac Type Severity Reaction Status Date / Time nickel Allergy Edema Verified 08/11/23 12:06 - Social History Does the pt smoke?: No Smoking Status: Never smoker Does the pt drink ETOH?: No Does the pt have substance abuse?: No - Immunizations Immunizations are current?: Yes Immunizations: TDAP >10years/unknown - POLST Patient has POLST: No PD ED PE NORMAL - Vitals Vital signs reviewed: Yes - General General: Alert and oriented X 3, No acute distress - HEENT HEENT: Other (Poor dentition with gingivitis and receding gums) - Neck Neck: Supple, no meningeal sign, No bony TTP - Cardiac Cardiac: RRR, No murmur - Respiratory Respiratory: No respiratory distress, Clear bilaterally - Abdomen Abdomen: Non tender, Non distended - Extremities Extremities: No edema, No calf tenderness / cord - Neuro Neuro: Alert and oriented X 3 Results - Vitals Vitals: Vital Signs - 24 hr 08/11/23 08/11/23 08/11/23 12:06 14:15 15:57 Temperature 36.8 C Heart Rate 83 79 87 Respiratory 16 18 18 Rate Blood Pressure 148/94 H 139/76 H 133/98 H O2 Saturation 97 98 98 08/11/23 08/11/23 18:00 20:00 Temperature Heart Rate 73 86 Respiratory 16 16 Rate Blood Pressure 113/72 129/92 H O2 Saturation 100 98 Oxygen O2 Source Room air - EKG (time done) 1209 EKG releavant findings:: EKG personally interpreted by author of this note. Relevant findings are: Rate: Rate (enter#) (78) Rhythm: NSR, LAE [place]: Normal Intervals: Normal AR QRS: Normal Ischemia: T wave inversion, Non specific changes. No: ST elevation c/w ischemia, ST depression Compare to prior EKG: Old EKG unavailable Computer interpretation: Agree with computer - Labs Labs: Laboratory Tests 08/11/23 08/11/23 08/11/23 12:50 12:50 14:51 WBC 9.7 RBC 4.15 L Hgb 13.2 Hct 39.6 MCV 95.4 MCH 31.8 H MCHC 33.3 RDW 14.0 Plt Count 248 MPV 10.0 Neut # (Auto) 6.2 Lymph # (Auto) 2.3 [place]shaw # (Auto) 0.8 Eos # (Auto) 0.3 Baso # (Auto) 0.1 Absolute Nucleated RBC 0.00 Nucleated RBC % 0.0 APTT Sodium 139 Potassium 3.7 Chloride 110 Carbon Dioxide 23 Anion Gap 6.0 BUN 16 Creatinine 0.8 Estimated GFR (MDRD) 75 L Glucose 91 Calcium 9.3 Total Bilirubin 0.3 AST 19 ALT 24 Alkaline Phosphatase 70 Troponin I High Sens 950.2 H* 1052.4 H* Total Protein 6.3 L Albumin 3.8 Globulin 2.5 Albumin/Globulin Ratio 1.5 Lipase 14 08/11/23 20:03 WBC RBC Hgb Hct MCV MCH MCHC RDW Plt Count MPV Neut # (Auto) Lymph # (Auto) [place]shaw # (Auto) Eos # (Auto) Baso # (Auto) Absolute Nucleated RBC Nucleated RBC % APTT 32.5 Sodium Potassium Chloride Carbon Dioxide Anion Gap BUN Creatinine Estimated GFR (MDRD) Glucose Calcium Total Bilirubin AST ALT Alkaline Phosphatase Troponin I High Sens Total Protein Albumin Globulin Albumin/Globulin Ratio Lipase - Rads (name of study) Single view chest x-ray is negative Relevant Findings:: Final report received, EMP independent interpretation of test PD Medical Decision Making - ED course ED course: 53-year-old woman has had some pain that has some typical features for the last 3 days. It does get worse after eating but also with exertion. She has an EKG that does not show obvious WA but has some abnormally inverted T waves. And subsequently her chest x-ray was normal as was her CBC and CMP but has a significantly elevated troponin at 950. Will start heparin, beta-blockade, Nitropaste, statin and aspirin and [facility] is called for potential transfer at about 1:40 PM. By 2:05 PM the health day camp unit leader reported to me that [facility], [facility], and [facility] were all full-up and she is expanding the search into the [facility]. Accepted to [facility] by hospitalist Jim Matson at 3:17 PM. She is stable for transport and cobras are completed. - Critical Care Time(min): 41 Time Includes: Direct patient care, Review records, Reassess patient, Document care, Coordinate care, Medical consult, Family consult for tx dec Data interpretation: Labs, Pulse ox Procedures included in critical care time: Peripheral IV Procedures excluded from critical care time: EKG Departure - Departure Disposition: 02 Transfer Acute Care Hosp Clinical Impression: NSTEMI (non-ST elevated myocardial infarction) Condition: Serious Forms: PCP List
[2023-08-11 13:05] LABS: BASOPHILS # (AUTO) 0.1 10^3/uL (0.0-0.1); BASOPHILS % (AUTO) 0.8 %; EOSINOPHILS # (AUTO) 0.3 10^3/uL (0.0-0.7); EOSINOPHILS % (AUTO) 2.7 %; HCT - HEMATOCRIT 39.6 % (37.0-47.0); HGB - HEMOGLOBIN 13.2 g/dL (12.0-16.0); LYMPHOCYTES # (AUTO) 2.3 10^3/uL (1.5-3.5); LYMPHOCYTES % (AUTO) 23.4 %; MEAN CORPUSCULAR HEMOGLOBIN 31.8 pg (27.0-31.0); MEAN CORPUSCULAR HGB CONC 33.3 g/dL (32.0-36.0); MEAN CORPUSCULAR VOLUME 95.4 fL (81.0-99.0); MONOCYTES # (AUTO) 0.8 10^3/uL (0.0-1.0); MONOCYTES % (AUTO) 8.6 %; NEUTROPHILS # (AUTO) 6.2 10^3/uL (1.5-6.6); PLT - PLATELET COUNT 248 10^3/uL (130-450); RED BLOOD COUNT 4.15 10^6/uL (4.20-5.40); WHITE BLOOD COUNT 9.7 x10^3/uL (4.8-10.8)
[2023-08-11 13:21] LABS: ALBUMIN 3.8 g/dL (3.2-5.5); ALBUMIN/GLOBULIN RATIO 1.5 (1.0-2.2); BILIRUBIN,TOTAL 0.3 mg/dL (0.2-1.0); CALCIUM 9.3 mg/dL (8.5-10.3); CREATININE 0.8 mg/dL (0.6-1.3); POTASSIUM 3.7 mmol/L (3.5-4.5); TOTAL PROTEIN 6.3 g/dL (6.4-8.9)
--- NOTE | 2023-08-11 13:21 | XRAY Report ---
PROCEDURE: Chest 1V INDICATIONS: Chest Pain TECHNIQUE: One view of the chest was acquired. COMPARISON: Chest x-ray 11/17/2015 FINDINGS: Surgical changes and devices: Cervical fixation plate. Lungs and pleura: No pleural effusions or pneumothorax. Lungs are clear. Mediastinum: Mediastinal contours appear normal. Heart size is normal. Bones and chest wall: No suspicious bony lesions. Overlying soft tissues appear unremarkable. IMPRESSION: No acute cardiopulmonary process. Reviewed by: Carmen Arenas MD on 08/11/2023 1:19 PM PDT Approved by: Carmen Arenas MD on 08/11/2023 1:19 PM PDT Station ID: [id number]
[2023-08-11 13:33] LABS: TROPONIN I HIGH SENSITIVITY 950.2 ng/L (2.3-14.8)
[2023-08-11] MEDS: ASPIRIN CHEW 81 MG TABLET PO STA (13:47)
[2023-08-11] MEDS: METOPROLOL TARTRATE 50 MG TABLET PO STA (13:48)
[2023-08-11] MEDS: ATORVASTATIN 40 MG TABLET PO STA (13:49)
[2023-08-11] MEDS: METOPROLOL 5 MG/5 ML VIAL IVP STA (13:50)
[2023-08-11] MEDS: NITROGLYCERIN 2% PASTE TOP STA (13:53)
[2023-08-11] MEDS: HEPARIN 25000UNITS/500ML (D5W) 25,000 UNIT/500 ML BAG IV SCH (13:56)
[2023-08-11] MEDS: MORPHINE 2 MG/ML CARPUJECT IVP STA ×2 (14:19→15:43)
[2023-08-11] MEDS ORDERED: ACETAMINOPHEN 500 MG TABLET PO PRN (14:50)
[2023-08-11] MEDS ORDERED: ONDANSETRON 4 MG/2 ML VIAL IVP PRN (14:50)
[2023-08-11] MEDS: MORPHINE 2 MG/ML CARPUJECT IVP PRN (19:34)
[2023-08-11 20:40] VITALS: BP 129/92; O2SAT 98
[2023-08-11] MEDS ORDERED: METOPROLOL TARTRATE 25 MG TABLET PO SCH (21:00)
[2023-08-12] MEDS ORDERED: PANTOPRAZOLE 40 MG TABLET PO SCH (07:00)
[2023-08-12] MEDS ORDERED: ATORVASTATIN 40 MG TABLET PO SCH (09:00)
[2023-08-12] MEDS ORDERED: ASPIRIN CHEW 81 MG TABLET PO SCH (09:00)
== END 2023-08-11 21:00 | disposition short-term general hospital (02) ==
LOC: ED 11:51
DX: I21.4 Non-ST elevation (NSTEMI) myocardial infarction (principal); I10 Essential (primary) hypertension
CPT/HCPCS: 36415; 71045; 80053; 83690; 84484; 85025; 85730; 93005; 93307; 96374; 96375; 96376; 99285; A9270